=== PATIENT | male | born 1965 ===

== ENCOUNTER 2017-08-04 08:37 | Day surgery (SDC) | payer OTHER ==
[2017-08-04] MEDS ORDERED: Iohexol 350mg/ml 100 ML ONE (10:34)
[2017-08-04] MEDS ORDERED: Lidocaine 2% Inj (20ml) ONE (10:40)
[2017-08-04 11:07] VITALS: BMI 28.1
--- NOTE | 2017-08-04 11:14 | CP.SDSHP ---
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 He is referred for fisutagram. Pt. Evaluated Today:Candidate for Anesthesia & Procedure: No Short Stay Discharge - Short Stay Discharge Admitting Diagnosis/Reason for Visit: ANAL FISTULA RECURRENT
--- NOTE | 2017-08-04 11:16 | PCM.SURG1 ---
Surgeon's Initial Post Op Note - Surgeon's Notes Surgeon: Chris Ramirez MD Medical Secretary: NONE Type of Anesthesia: None Pre-Operative Diagnosis: Perianal fistula Operative Findings: The fistula was catheterized and a fistulagram showed communication with rectum. Post-Operative Diagnosis: Perianal fistula Operation Performed: Perianal fistulagram. Specimen/Specimens Removed: none Estimated Blood Loss: EBL {In ML}: 0 Blood Products Given: N/A Drains Used: No Drains Post-Op Condition: Good Date of Surgery/Procedure: 08/04/17 Time of Surgery/Procedure: 11:10
--- NOTE | 2017-08-04 12:37 | SPECPROC ---
PROCEDURE: Procedure: Fistulogram Medications: Contrast dye 15 cubic centimeters Omnipaque 320 Fluoroscopic time: 3 minutes 16 seconds Radiation: 308 mGy HISTORY: Perianal fistula status post fistula ectomy with recurrent symptoms TECHNIQUE: Following informed consent and procedure time-out, patient placed lateral position on the fluoroscopic table. Examination revealed a perianal fistula with purulent drainage. There was prepped and draped. An angled catheter was advanced into the fistulous tract. Under fluoroscopic guidance, the catheter was advanced into the rectum. Contrast injected through the catheter outlined rectum and also flowed retrograde into the sigmoid. Findings were communicated to the surgeon. IMPRESSION: Perianal fistulogram showed a patent fistulous tract to the rectum. This represents an enterocutaneous fistula.
== END 2017-08-04 11:29 | disposition home or self-care (01) ==
LOC: C.SPRAD 08:37
PROVIDERS: ATTEND Radiology Vascular & Interventional Radiology
DX: K60.3 Anal fistula (principal)
CPT/HCPCS: 49465; Q9967

== ENCOUNTER 2017-08-25 06:26 | Day surgery (SDC) | payer OTHER ==
[2017-08-25] MEDS ORDERED: Bupivacaine HCl 0.5% PF (10 ml) Inj ONE ×2 (07:48)
[2017-08-25] MEDS ORDERED: Lidocaine/Epinephrine 1% 1:100000 10 ML IJ ONE (07:48)
[2017-08-25] MEDS ORDERED: Lactated Ringer's 1,000 ML IV ONE (08:05)
[2017-08-25] MEDS ORDERED: Sodium Chloride 0.9% 1,000 ML IV ONE (08:05)
[2017-08-25] MEDS ORDERED: ceFAZolin IV 2 gm in Dextrose 2 GM/50 ML BAG IVPB ONE (08:09)
[2017-08-25] MEDS ORDERED: Succinylcholine Chloride 20 mg/ml Syr (5 ml) IV ONE (08:10)
[2017-08-25] MEDS ORDERED: Lidocaine Hydrochloride 5 ML INJ ONE (08:10)
[2017-08-25] MEDS ORDERED: Propofol 10 mg/ml Inj (20 ML) ONE (08:10)
[2017-08-25] MEDS ORDERED: Midazolam 2 MG/2 ML VIAL ONE (08:10)
[2017-08-25] MEDS ORDERED: Rocuronium 10 mg/ml (5 ml) ONE (08:10)
[2017-08-25] MEDS ORDERED: Methylene Blue 10 mg/mL(10ml) IV ONE (08:36)
[2017-08-25] MEDS ORDERED: Morphine 4 MG/ML VIAL ONE (09:13)
[2017-08-25] MEDS ORDERED: Neostigmine Methylsulfate 3mg/3ml Syringe IV ONE (09:40)
[2017-08-25] MEDS ORDERED: Oxycodone/Acetaminophen 5/325 mg Tab PO PRN (10:03)
--- NOTE | 2017-08-25 10:07 | PCM.SURG1 ---
Surgeon's Initial Post Op Note - Surgeon's Notes Surgeon: Dr. Mcfarlane Friend Of The Court: PGY4, Chaya PGY1, Dwayne CRAIG Type of Anesthesia: General Endo Anesthesia Administered By: Dr. Man Pre-Operative Diagnosis: Anal fistula Operative Findings: see operative report Post-Operative Diagnosis: Anal fistula Operation Performed: Anal fistulectomy with seton placement Specimen/Specimens Removed: skin, fistula tract Estimated Blood Loss: EBL {In ML}: 10 Blood Products Given: N/A Drains Used: No Drains Post-Op Condition: Good Date of Surgery/Procedure: 08/25/17 Time of Surgery/Procedure: 08:15
[2017-08-25 11:49] VITALS: RESP 16
--- NOTE | 2017-08-25 13:26 | OP ---
PROCEDURE DATE: 08/25/2017 PREOPERATIVE DIAGNOSIS: Recurrent anal fistula. POSTOPERATIVE DIAGNOSIS: Recurrent anal fistula. PROCEDURE DONE: 1. Examination under anesthesia. 2. Anal fistulectomy. 3. Seton placement. SURGEON: Procedure was done by wy, Dr. Serg Mcfarlane MD. GRAVITY PROSPECTING SUPERVISOR: Fahad Burch, PGY-4 resident and Amaury Larkin, PGY-1 resident. TYPE OF ANESTHESIA: General endotracheal tube anesthesia. ESTIMATED BLOOD LOSS: Around 20 mL. DRAIN: None. PATHOLOGY: 1. The pus was sent for the culture and sensitivity. 2. The fistula tract was sent for the permanent pathology. COMPLICATIONS: None. INTRAOPERATIVE FINDINGS: The patient had right lateral fistula with opening in the posterior midline on examination under anesthesia. DESCRIPTION OF PROCEDURE: On intraoperative steps, this is a 52-year-old male, who was diagnosed with recurrent anal fistula and the patient was consented for the fistulectomy and seton placement. The patient was brought to the OR, intubated in the OR, placed in the prone Jackknife position and the butt cheek was taped and the perineal area was prepped and draped in the usual sterile fashion. Examination under anesthesia was done and the fistula tract was injected with methylene blue and hydrogen peroxide and the fistula opening was detected in the posterior midline and now the fistula tract was excised and for remaining tract, the seton was placed and after placement of the seton, the seton was tied down at 3 places and the hemostasis was achieved. The wound was packed with iodoform packing and dry sterile dressing was applied. The patient tolerated the procedure well. Count of the instrument and gauze were correct. There was no apparent complication. The patient was extubated in the OR, sent to the Postanesthesia Care Unit in stable condition. Serg Mcfarlane MD
[2017-08-25 14:41] VITALS: BP 112/67; PULSE 71; TEMP 97.6; O2SAT 96
== END 2017-08-25 14:35 | disposition home or self-care (01) ==
LOC: C.SDS 06:26
PROVIDERS: ATTEND Surgery Surgical Critical Care
DX: K60.3 Anal fistula (principal)
CPT/HCPCS: 46020; 87070; 88305; J0690; J1100; J1885; J2250; J2270; J2405; J2704; J2710; J3010; J7040

== ENCOUNTER 2018-02-13 09:50 | Emergency (ER) | payer OTHER ==
[2018-02-13 09:50] VITALS: BMI 28.1
[2018-02-13 09:57] VITALS: O2SAT 99
[2018-02-13 11:02] LABS: INR 1.1; PROTHROMBIN TIME 11.9 SECONDS (9.7-12.2)
[2018-02-13 11:04] LABS: BASO % 0.6 % (0.0-2.0); EOS % 0.6 % (0.0-4.0); HEMOGLOBIN 14.4 g/dL (12.0-18.0); LYMPH # 1.5 K/uL (1.0-4.3); MEAN CELL VOLUME 87.5 fL (80.0-94.0); MEAN CORPUSCULAR HEMOGLOBIN 32.8 pg (27.0-31.0); MEAN CORPUSCULAR HGB CONC 37.5 g/dL (33.0-37.0); MEAN PLATELET VOLUME 8.2 fL (7.2-11.7); MONO # 0.5 K/uL (0.0-0.8); MONO % 7.6 % (0.0-10.0); NEUT # 4.6 K/uL (1.8-7.0); NEUT % 69.2 % (50.0-75.0); NRBC % 0.2 % (0.0-2.0); RBC 4.39 Mil/uL (4.40-5.90); RED CELL DISTRIBUTION WIDTH 14.1 % (11.5-14.5); WHITE BLOOD COUNT 6.7 K/uL (4.8-10.8)
[2018-02-13 11:07] LABS: URINE BILIRUBIN NEGATIVE (NEGATIVE); URINE BLOOD NEGATIVE (NEGATIVE); URINE CLARITY Clear (Clear); URINE COLOR Yellow (YELLOW); URINE GLUCOSE (UA) NORMAL (Normal); URINE LEUKOCYTE ESTERASE NEG Leu/uL (Negative); URINE PROTEIN NEGATIVE (NEGATIVE); URINE UROBILINOGEN NORMAL mg/dL (0.2-1.0)
[2018-02-13 11:13] LABS: CALCIUM 8.1 mg/dl (8.6-10.4); GFR AFRICAN-AMERICAN > 60; GFR NON-AFRICAN AMERICAN > 60; LIPASE 58 U/L (23-300)
[2018-02-13 11:21] LABS: ALB/GLOB RATIO 1.2 (1.0-2.1); ALBUMIN 4.1 g/dL (3.5-5.0); ALT/SGPT 29 U/L (21-72); AST/SGOT 45 U/L (17-59); BLOOD UREA NITROGEN 14 mg/dL (9-20)
--- NOTE | 2018-02-13 12:01 | C.PDOC ---
History Of Present Illness 53 y/o male presents to the ED complaining of epigastric pain radiating up into his chest for the past 2-3 days. Pain is described as a burning sensation associated with nausea and vomiting. He denies diarrhea, cough, fever, chest pain, SOB, dysuria, or other associated symptoms. Patient also reports some right lower leg swelling and pain, with a non-healing wound for the last month. Time Seen by Provider: 02/13/18 10:02 Chief Complaint (Nursing): GI Problem History Per: Patient History/Exam Limitations: no limitations Onset/Duration Of Symptoms: Days Current Symptoms Are (Timing): Still Present Location Of Pain/Discomfort: Epigastric Quality Of Discomfort: Burning Past Medical History Reviewed: Historical Data, Nursing Documentation, Vital Signs Vital Signs: Last Vital Signs Temp 98 F 02/13/18 13:20 Pulse 69 02/13/18 13:20 Resp 17 02/13/18 13:20 BP 137/71 02/13/18 13:20 Pulse Ox 99 02/13/18 14:13 - Medical History PMH: No Chronic Diseases Other Surgeries: Anal fistula repair Family History: States: No Known Family Hx - Social History Hx Tobacco Use: No Hx Alcohol Use: Yes Hx Substance Use: No - Immunization History Hx Tetanus Toxoid Vaccination: Yes (2014) Hx Influenza Vaccination: No Hx Pneumococcal Vaccination: No Review Of Systems Constitutional: Negative for: Fever Cardiovascular: Negative for: Chest Pain, Palpitations Respiratory: Negative for: Cough, Shortness of Breath Gastrointestinal: Positive for: Nausea, Vomiting, Abdominal Pain. Negative for : Diarrhea Musculoskeletal: Positive for: Leg Pain (swelling) Skin: Positive for: Lesions (open wound to right lower leg) Neurological: Negative for: Weakness, Numbness Physical Exam - Physical Exam Appears: Well, Non-toxic, No Acute Distress, Other ( comfortable, speaking in full sentences) Skin: Warm, Dry, No Rash, Other (see extremity exam ) Head: Normacephalic Eye(s): bilateral: Normal Inspection Oral Mucosa: Moist Neck: Supple Cardiovascular: Rhythm Regular Respiratory: Normal Breath Sounds, No Rales, No Rhonchi, No Wheezing Gastrointestinal/Abdominal: Bowel Sounds, Soft, Tenderness (mild epigastric tenderness, (-) Rome's, (-) McBurney's), No Guarding, No Rebound Back: No CVA Tenderness Extremity: Normal ROM, Tenderness (near ulcer site on right lower extremity), Capillary Refill (< 2 sec all digits ), Swelling (+1 pitting edema in the right lower extremity), Other (approx 2 cm ulcer at distal morales of right lower extremity with mild surrounding erythema and chronic skin changes) Pulses: Left Dorsalis Pedis: Normal, Right Dorsalis Pedis: Normal Neurological/Psych: Oriented x3, Normal Motor, Normal Sensation Gait: Steady ED Course And Treatment - Laboratory Results Result Diagrams: 02/13/18 10:43 02/13/18 10:43 O2 Sat by Pulse Oximetry: 99 (RA) Pulse Ox Interpretation: Normal - Radiology CXR: Interpreted by Me, Viewed By Me CXR Interpretation: Yes: No Acute Disease. No: Infiltrates - CT Scan/US Venous Doppler RLE Other Rad Studies (CT/US): Read By Radiologist, Radiology Report Reviewed CT/US Interpretation: Negative for DVT Progress Note: Blood work, UA, CXR, Venous doppler ordered and reviewed. Patient given IV NS bolus, IV pepcid and IV zofran. Reevaluation Time: 13:00 Reassessment Condition: Improved (On reassessment, patient is resting comfortably and states he feels better, abdominal pain has resolved. On exam, abdomen is soft and nontender. Venous doppler neg for acute DVT. Patient given Rxs for Protonix and Clindamycin, and he was instructed to follow up with GI within 1 week. He understands he should return to ED if symptoms worsen.) Disposition Counseled Patient/Family Regarding: Studies Performed, Diagnosis, Need For Followup, Rx Given - Disposition Referrals: [facility] [Outside] Drew Webber MD [Medical Doctor] - Disposition: HOME/ ROUTINE Disposition Time: 13:00 Condition: STABLE Additional Instructions: FOLLOW UP WITH CUT OFF MAN WITHIN 1 WEEK USE MEDICATIONS DIRECTED RETURN TO EMERGENCY ROOM IF WOUND WORSENS OR SYMPTOMS RETURN SEGUIMIENTO CON GASTROENTERLOGO DENTRO DE 1 SEMANA USE MEDICAMENTOS SEGN LO INDICADO REGRESAR AL AUSTEN DE EMERGENCIA SI LA HERIDA EMPIEZA O SNTOMAS DEVOLVER Prescriptions: Clindamycin [Cleocin] 300 mg PO TID #21 cap Pantoprazole [Protonix EC Tab] 20 mg PO DAILY #30 ect Instructions: Cellulitis (Skin Infection), Adult (DC) Forms: [employer] (Tanzanian) Print Language: BOLIVIAN - Clinical Impression Clinical Impression: Leg wound, right, Epigastric abdominal pain, Cellulitis - Scribe Statement The provider has reviewed the documentation as recorded by the Agueda Orta Provider Attestation: All medical record entries made by the Agueda were at my direction and personally dictated by me. I have reviewed the chart and agree that the record accurately reflects my personal performance of the history, physical exam, medical decision making, and the department course for this patient. I have also personally directed, reviewed, and agree with the discharge instructions and disposition.
[2018-02-13 13:21] VITALS: BP 137/71; PULSE 69; RESP 17; TEMP 98
--- NOTE | 2018-02-13 13:24 | VASCLAB ---
Date of service: 02/13/2018 PROCEDURE: Right Lower Extremity Venous Duplex Exam. HISTORY: RIGHT LEG SWELLING , WOUND R/O DVT PRIORS: None. TECHNIQUE: Right common femoral, femoral, popliteal and posterior tibial, peroneal and great saphenous veins were evaluated. Flow was assessed with color Doppler, compressibility, assessment of phasic flow and augmentation response. Report prepared by Ciara Galvan, LOPEZ, RVS FINDINGS: RIGHT: 1. Common Femoral Vein: 1.1. Compressibility - Fully compressible: Thrombus - None: Flow - Phasic: Augmentation -Normal: Reflux - None. 2. Femoral Vein: 2.1. Compressibility - Fully compressible: Thrombus - None: Flow - Phasic: Augmentation -Normal: Reflux - None. 3. Popliteal Vein: 3.1. Compressibility - Fully compressible: Thrombus - None: Flow - Phasic: Augmentation -Normal: Reflux - None. 4. Posterior Tibial Vein: 4.1. Compressibility - Fully compressible: Thrombus - None: Flow - Phasic: Augmentation -Normal: Reflux - None. 5. Peroneal Vein: 5.1. Compressibility - Fully compressible: Thrombus - None: Flow - Phasic: Augmentation -Normal: Reflux - None. 6. Great Saphenous Vein: 6.1. Compressibility - Fully compressible: Thrombus -None: Flow - Phasic: Augmentation - Normal: Reflux - None. OTHER FINDINGS: IMPRESSION: No evidence of deep or superficial vein thrombosis of the right lower extremity with excellent venous flow. Normal valve function noted of the right side. Normal venous flow noted in the left common femoral vein.
--- NOTE | 2018-02-13 13:48 | RAD ---
Date of service: 02/13/2018 PROCEDURE: CHEST RADIOGRAPH, 1 VIEW HISTORY: EPIGASTRIC CARRENO COMPARISON: 07/15/2017 FINDINGS: LUNGS: Clear. PLEURA: No pneumothorax or pleural fluid seen. CARDIOVASCULAR: Normal. OSSEOUS STRUCTURES: No significant abnormalities. VISUALIZED UPPER ABDOMEN: Normal. OTHER FINDINGS: None. IMPRESSION: No active disease.
== END 2018-02-13 13:20 | disposition home or self-care (01) ==
LOC: C.ER 09:50
DX: R10.13 Epigastric pain (principal); S81.801A Unspecified open wound, right lower leg, initial encounter; X58.XXXA Exposure to other specified factors, initial encounter
CPT/HCPCS: 71045; 80053; 81001; 83690; 85025; 85610; 85730; 93971; 96374; 96375; 99285; J2405

== ENCOUNTER 2018-02-25 14:55 | Inpatient (IN) | payer OTHER ==
[2018-02-25 14:55] VITALS: BMI 28.1
--- NOTE | 2018-02-25 15:37 | C.PDOC ---
History Of Present Illness 53 year old male patient presents to the ER c/o worsening right lower leg wound. Patient reports the wound is painful and has gotten larger since his last ER visit. Patient is s/p regimen of PO Clindamycin given on 02/13 in the ER. He reports he has had this wound for 1.5 months already. Patient denies fever, trauma/injuries, SOB, chest pain, or discharge from the wound. Time Seen by Provider: 02/25/18 15:17 Chief Complaint (Nursing): Abnormal Skin Integrity History Per: Patient History/Exam Limitations: no limitations Onset/Duration Of Symptoms: Persistent Current Symptoms Are (Timing): Worse Location Of Injury: Right: Leg Quality Of Symptoms: Painful, Swollen. denies: Draining Past Medical History Reviewed: Historical Data, Nursing Documentation, Vital Signs Vital Signs: Last Vital Signs Temp 97.6 F 03/01/18 07:59 Pulse 72 03/01/18 07:59 Resp 20 03/01/18 07:59 BP 116/65 03/01/18 07:59 Pulse Ox 97 03/01/18 07:59 - Medical History PMH: No Chronic Diseases Family History: States: No Known Family Hx - Social History Hx Tobacco Use: No Hx Alcohol Use: No Hx Substance Use: No - Immunization History Hx Tetanus Toxoid Vaccination: No Hx Influenza Vaccination: No Hx Pneumococcal Vaccination: No Review Of Systems Constitutional: Negative for: Fever, Other (recent trauma) Cardiovascular: Negative for: Chest Pain, Palpitations Respiratory: Negative for: Shortness of Breath Gastrointestinal: Negative for: Abdominal Pain Skin: Negative for: Other (discharge from wound) Neurological: Negative for: Weakness, Numbness Physical Exam - Physical Exam Appears: Well, Non-toxic, In Acute Distress (in moderate pain) Skin: Warm, Dry, Other (see extremity exam) Head: Normacephalic Eye(s): bilateral: Normal Inspection Oral Mucosa: Moist Neck: Supple Cardiovascular: Rhythm Regular Respiratory: Normal Breath Sounds, No Rales, No Rhonchi, No Wheezing Gastrointestinal/Abdominal: Normal Exam, Bowel Sounds, Soft, No Tenderness Back: No CVA Tenderness Extremity: Tenderness (right lower leg diffuse tenderness), No Pedal Edema, Capillary Refill (<2 sec all digits ), Other (right leg tender to palpation and erythematous, approx 4-5 cm ulcerated wound, no purulent discharge, mild surrounding erythema) Extremity: Bilateral: Normal ROM Pulses: Left Dorsalis Pedis: Normal, Right Dorsalis Pedis: Normal Neurological/Psych: Oriented x3, Normal Motor, Normal Sensation Gait: Steady ED Course And Treatment - Laboratory Results Result Diagrams: 03/01/18 08:01 03/01/18 08:01 O2 Sat by Pulse Oximetry: 98 (RA) Pulse Ox Interpretation: Normal - Other Rad right tib/fib X-Ray: Interpreted by Me, Viewed By Me (no gas, no obvious periosteal elevation) Progress Note: Blood work, arterial doppler, wound culture, Xray ordered. Venous doppler done during prior ED visit neg for acute DVT. Patient given 1 dose IV Vancomycin and IV Cefepime in ED. IV Morphine given for pain. - Physician Consult Information Physician Contacted: Diana Barillas Outcome Of Conversation: Discussed patient with hospitalist, agrees with admission for right leg worsening wound/cellulitis, failed outpatient treatment. Disposition - Disposition Disposition: HOSPITALIZED Disposition Time: 18:18 Condition: STABLE - Clinical Impression Clinical Impression: Failure of outpatient treatment, Cellulitis, Leg wound, right - Scribe Statement The provider has reviewed the documentation as recorded by the Agueda Newsome Do Provider Attestation: All medical record entries made by the Scribe were at my direction and personally dictated by me. I have reviewed the chart and agree that the record accurately reflects my personal performance of the history, physical exam, medical decision making, and the department course for this patient. I have also personally directed, reviewed, and agree with the discharge instructions and disposition. Decision To Admit - Pt Status Changed To: Hospital Disposition Of: Inpatient - Admit Certification Admit to Inpatient:: After my assessment, the patient will require hospitalization for at least two midnights. This is because of the severity of symptoms shown, intensity of services needed, and/or the medical risk in this patient being treated as an outpatient. - InPatient: Physician Admission Certification: I certify that this patient requires 2 or more midnights of care for the following reason:: see notes - . Bed Request Type: Regular Admitting Physician: Diana Barillas Patient Diagnosis: Failure of outpatient treatment, Leg wound, right, Cellulitis
[2018-02-25] MEDS ORDERED: Sodium Chloride 0.9% 1,000 ML IV ONE (15:39)
[2018-02-25] MEDS ORDERED: Sodium Chloride 0.9% 1,000 ML ONE (15:54)
[2018-02-25] MEDS ORDERED: Morphine 4 MG/ML VIAL ONE (16:05)
[2018-02-25 16:13] LABS: EOS # 0.1 K/uL (0.0-0.7); MEAN CELL VOLUME 87.8 fL (80.0-94.0); MONO # 0.6 K/uL (0.0-0.8)
[2018-02-25 16:17] LABS: VENOUS BLOOD GAS BASE EXCESS 1.5 mmol/L (0.0-2.0); VENOUS BLOOD GAS PCO2 46 mmHg (40-60); VENOUS BLOOD GAS PO2 28 mm/Hg (30-55); VENOUS BLOOD PH 7.38 (7.32-7.43)
[2018-02-25] MEDS ORDERED: Vancomycin 1 GM 1 GM/250 ML BAG IV STA (16:18)
[2018-02-25] MEDS ORDERED: Cefepime IV 1 gm in Dextrose 1 GM/50 ML BAG IVPB STA (16:18)
[2018-02-25 16:20] LABS: INR 1.2; PROTHROMBIN TIME 12.7 SECONDS (9.7-12.2)
[2018-02-25 16:23] LABS: BASO % 0.5 % (0.0-2.0); HEMOGLOBIN 12.1 g/dL (12.0-18.0); LYMPH % 16.4 % (20.0-40.0); MEAN CORPUSCULAR HEMOGLOBIN 30.4 pg (27.0-31.0); MEAN CORPUSCULAR HGB CONC 34.6 g/dL (33.0-37.0); MEAN PLATELET VOLUME 7.9 fL (7.2-11.7); MONO % 9.4 % (0.0-10.0); NEUT # 4.5 K/uL (1.8-7.0); NEUT % 72.7 % (50.0-75.0); NRBC % 0.1 % (0.0-2.0); RBC 3.97 Mil/uL (4.40-5.90); RED CELL DISTRIBUTION WIDTH 14.6 % (11.5-14.5); WHITE BLOOD COUNT 6.2 K/uL (4.8-10.8)
[2018-02-25 17:00] LABS: BLOOD UREA NITROGEN 17 mg/dL (9-20); GFR AFRICAN-AMERICAN > 60; GFR NON-AFRICAN AMERICAN > 60
[2018-02-25] MEDS ORDERED: Vancomycin 1 gm/NS 200 ml 1 GM/200 ML BAG IVPB ONE (17:00)
[2018-02-25 17:01] LABS: ALB/GLOB RATIO 1.3 (1.0-2.1); ALT/SGPT 24 U/L (21-72); AST/SGOT 22 U/L (17-59); CALCIUM 8.9 mg/dl (8.6-10.4)
--- NOTE | 2018-02-25 17:48 | RAD ---
Date of service: 02/25/2018 PROCEDURE: Radiographs of the right tibia and fibula. HISTORY: DISTAL TIB/FIB WOUND, R/O OSTEO/GAS COMPARISON: None available. TECHNIQUE: Frontal and lateral views obtained. FINDINGS: BONES: Bone alignment is normal. There is no acute fracture or bone destruction. JOINT SPACES: Unremarkable. OTHER FINDINGS: There is diffuse subcutaneous edema. No soft tissue gas. IMPRESSION: No radiographic evidence for acute osteomyelitis. No soft tissue gas. Subcutaneous edema.
[2018-02-25 19:25] VITALS: RESP 20
--- NOTE | 2018-02-25 20:22 | CP.PCM.HP ---
<Francisco Javier Macario E - Last Filed: 02/25/18 20:24> History of Present Illness - History of Present Illness History of Present Illness: [employer] (Chris Bruce, [id number]) HPI: Patient is a 53 year male with history of anal fistula who presents to the ED with complaint of right leg wound that started from a small abrasion for a packaging box 20 days ago. Patient was seen in the ED on 02/13/18 for abdominal pain, however, his right leg wound was addressed as well. Venous doppler was negative for DVT on 02/13 and patient was discharge home with script for clindamycin 300mg PO TID for 7 days, which he filled and completed the 7 days course. Patient came back to the ED today because he noticed increased wound size, weeping and odour. Patient admits to 03/06 non-radiating pulsatile and burning pain that his mildly exacerbated with walking. Patient denies any symptoms fever, chills, nausea, vomiting, chest pain, palpitations, SOB, recent travels and sick contact but admits to right leg swelling. 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 Denies current or former use of tobacco and illicit drugs. Admits to an alcoholic beverage once per month. Present on Admission - Present on Admission Any Indicators Present on Admission: No Review of Systems - Constitutional Constitutional: absent: Chills, Fever, Headache, Weakness - EENT Eyes: absent: Blurred Vision, Change in Vision Ears: absent: Dizziness - Cardiovascular Cardiovascular: absent: Chest Pain, Diaphoresis, Dyspnea, Lightheadedness, Orthopnea, Palpitations - Respiratory Respiratory: absent: Cough, Dyspnea, Wheezing - Gastrointestinal Gastrointestinal: Hematochezia. absent: Abdominal Pain, Nausea, Vomiting Additional comments: Mild Intermittent chronic hematochezia from anal fistula - Genitourinary Genitourinary: absent: Dysuria, Hematuria, Urinary Frequency, Urinary Urgency - Musculoskeletal Musculoskeletal: absent: Limited Range of Motion, Muscle Weakness, Numbness, Tingling Additional comments: Right leg burning sensation - Neurological Neurological: absent: Burning Sensations, Dizziness, Numbness, Headaches, Paresthesias, Sensory Deficit, Tingling, Weakness - Endocrine Endocrine: absent: Fatigue, Palpitations Past Patient History - Infectious Disease Hx of Infectious Diseases: None - Past Medical History & Family History Past Medical History?: No - Past Social History Smoking Status: Never Smoked - CARDIAC Hx Cardiac Disorders: No - PULMONARY Hx Respiratory Disorders: No - NEUROLOGICAL Hx Neurological Disorder: No - HEENT Hx HEENT Problems: No - RENAL Hx Chronic Kidney Disease: No - ENDOCRINE/METABOLIC Hx Endocrine Disorders: No - HEMATOLOGICAL/ONCOLOGICAL Hx Blood Disorders: No - INTEGUMENTARY Hx Dermatological Problems: No - MUSCULOSKELETAL/RHEUMATOLOGICAL Hx Musculoskeletal Disorders: No - GASTROINTESTINAL Hx Gastrointestinal Disorders: Yes Other/Comment: anal fistula - GENITOURINARY/GYNECOLOGICAL Hx Genitourinary Disorders: No - PSYCHIATRIC Hx Substance Use: No - SURGICAL HISTORY Hx Surgeries: Yes Other/Comment: anal fistula repair. - ANESTHESIA Hx Anesthesia: Yes Hx Anesthesia Reactions: No Hx Malignant Hyperthermia: No Meds Allergies/Adverse Reactions: Allergies Allergy/AdvReac Type Severity Reaction Status Date / Time No Known Allergies Allergy Verified 12/27/15 11:39 Physical Exam - Constitutional Appears: No Acute Distress - Head Exam Head Exam: ATRAUMATIC, NORMAL INSPECTION - Eye Exam Eye Exam: EOMI, Normal appearance - ENT Exam ENT Exam: Mucous Membranes Moist - Respiratory Exam Respiratory Exam: Clear to Auscultation Bilateral, NORMAL BREATHING PATTERN. absent: Decreased Breath Sounds, Prolonged Expiratory Phase, Rhonchi, Wheezes, Respiratory Distress - Cardiovascular Exam Cardiovascular Exam: REGULAR RHYTHM, +S1, +S2. absent: Diastolic murmur, Systolic Murmur - GI/Abdominal Exam GI & Abdominal Exam: Normal Bowel Sounds, Soft. absent: Diminished Bowel Sounds , Distended, Firm, Guarding, Tenderness - Extremities Exam Extremities exam: Positive for: pedal pulses present. Negative for: pedal edema Additional comments: Right leg swelling with mild erythema Right leg Wound above the ankle: 3-4cm open wound, weeping - Back Exam Back exam: NORMAL INSPECTION. absent: CVA tenderness (L), CVA tenderness (R) - Neurological Exam Neurological exam: Alert, Normal Gait, Oriented x3 - Psychiatric Exam Psychiatric exam: Normal Affect - Skin Skin Exam: Normal Color Results - Vital Signs Recent Vital Signs: Last Vital Signs Temp 97.5 F L 02/25/18 19:15 Pulse 72 02/25/18 19:15 Resp 20 02/25/18 19:15 BP 129/80 02/25/18 19:15 Pulse Ox 98 02/25/18 19:15 - Labs Result Diagrams: 02/25/18 16:09 02/25/18 16:09 Labs: Laboratory Results - last 24 hr 02/25/18 02/25/18 02/25/18 16:09 16:09 16:09 WBC 6.2 RBC 3.97 L Hgb 12.1 D Hct 34.9 L MCV 87.8 MCH 30.4 MCHC 34.6 RDW 14.6 H Plt Count 266 MPV 7.9 Neut % (Auto) 72.7 Lymph % (Auto) 16.4 L [place] % (Auto) 9.4 Eos % (Auto) 1.0 Baso % (Auto) 0.5 Neut # (Auto) 4.5 Lymph # (Auto) 1.0 [place] # (Auto) 0.6 Eos # (Auto) 0.1 Baso # (Auto) 0.0 ESR 37 H PT 12.7 H INR 1.2 APTT 38 H pO2 VBG pH VBG pCO2 VBG HCO3 VBG Total CO2 VBG O2 Sat (Calc) VBG Base Excess VBG Potassium Glucose Lactate Sodium 144 Potassium 3.7 Chloride 105 Carbon Dioxide 29 Anion Gap 14 BUN 17 Creatinine 1.0 Est GFR ( Amer) > 60 Est GFR (Non-Af Amer) > 60 Random Glucose 85 Calcium 8.9 Total Bilirubin 0.6 AST 22 ALT 24 Alkaline Phosphatase 67 Total Protein 7.2 Albumin 4.0 Globulin 3.2 Albumin/Globulin Ratio 1.3 Venous Blood Potassium 02/25/18 16:10 WBC RBC Hgb Hct MCV MCH MCHC RDW Plt Count MPV Neut % (Auto) Lymph % (Auto) [place] % (Auto) Eos % (Auto) Baso % (Auto) Neut # (Auto) Lymph # (Auto) [place] # (Auto) Eos # (Auto) Baso # (Auto) ESR PT INR APTT pO2 28 L VBG pH 7.38 VBG pCO2 46 VBG HCO3 24.8 VBG Total CO2 28.6 H VBG O2 Sat (Calc) 63.6 VBG Base Excess 1.5 VBG Potassium 3.5 L Glucose 95 Lactate 1.1 Sodium 141.0 Potassium Chloride 108.0 H Carbon Dioxide Anion Gap BUN Creatinine Est GFR ( Amer) Est GFR (Non-Af Amer) Random Glucose Calcium Total Bilirubin AST ALT Alkaline Phosphatase Total Protein Albumin Globulin Albumin/Globulin Ratio Venous Blood Potassium 3.5 L Assessment & Plan (1) Cellulitis of right leg Assessment and Plan: Imaging/ Labs: 02/13 ( Venous Doppler): No evidence of deep or superficial vein thrombosis of the right lower extremity with venous flow. Normal valve function noted of right side 02/25/18 (Right tibia and fibula): No radiographic evidence for acute osteomyelitis. No soft tissue gas. Subcutaneous edema. F/u right leg ultrasound F/u wound culture and blood culture Medications/management: * Vancomycin 1gm Q12H * Florastor 250mg PO BID * Encourage right leg elevation * Zosyn not added for pseudomonas coverage as patient is not diabetic ([id number]/ 23/18: 5.0) Status: Acute (2) Prophylactic measure Assessment and Plan: GI: Not Indicated DT: Patient ambulates, Left leg SCD, Right leg SCD contraindicated due to the right leg cellulitis All plans and management discussed with Dr. Dickinson Status: Acute <Emilio Dickinson - Last Filed: 02/26/18 05:59> Results - Vital Signs Recent Vital Signs: Last Vital Signs Temp 98.6 F 02/26/18 00:00 Pulse 64 02/26/18 00:00 Resp 20 02/26/18 00:00 BP 120/68 02/26/18 00:00 Pulse Ox 97 02/26/18 00:00 - Labs Result Diagrams: 02/25/18 16:09 02/25/18 16:09 Labs: Laboratory Results - last 24 hr 02/25/18 02/25/18 02/25/18 16:09 16:09 16:09 WBC 6.2 RBC 3.97 L Hgb 12.1 D Hct 34.9 L MCV 87.8 MCH 30.4 MCHC 34.6 RDW 14.6 H Plt Count 266 MPV 7.9 Neut % (Auto) 72.7 Lymph % (Auto) 16.4 L [place] % (Auto) 9.4 Eos % (Auto) 1.0 Baso % (Auto) 0.5 Neut # (Auto) 4.5 Lymph # (Auto) 1.0 [place] # (Auto) 0.6 Eos # (Auto) 0.1 Baso # (Auto) 0.0 ESR 37 H PT 12.7 H INR 1.2 APTT 38 H pO2 VBG pH VBG pCO2 VBG HCO3 VBG Total CO2 VBG O2 Sat (Calc) VBG Base Excess VBG Potassium Glucose Lactate Sodium 144 Potassium 3.7 Chloride 105 Carbon Dioxide 29 Anion Gap 14 BUN 17 Creatinine 1.0 Est GFR ( Amer) > 60 Est GFR (Non-Af Amer) > 60 Random Glucose 85 Calcium 8.9 Total Bilirubin 0.6 AST 22 ALT 24 Alkaline Phosphatase 67 Total Protein 7.2 Albumin 4.0 Globulin 3.2 Albumin/Globulin Ratio 1.3 Venous Blood Potassium 02/25/18 16:10 WBC RBC Hgb Hct MCV MCH MCHC RDW Plt Count MPV Neut % (Auto) Lymph % (Auto) [place] % (Auto) Eos % (Auto) Baso % (Auto) Neut # (Auto) Lymph # (Auto) [place] # (Auto) Eos # (Auto) Baso # (Auto) ESR PT INR APTT pO2 28 L VBG pH 7.38 VBG pCO2 46 VBG HCO3 24.8 VBG Total CO2 28.6 H VBG O2 Sat (Calc) 63.6 VBG Base Excess 1.5 VBG Potassium 3.5 L Glucose 95 Lactate 1.1 Sodium 141.0 Potassium Chloride 108.0 H Carbon Dioxide Anion Gap BUN Creatinine Est GFR ( Amer) Est GFR (Non-Af Amer) Random Glucose Calcium Total Bilirubin AST ALT Alkaline Phosphatase Total Protein Albumin Globulin Albumin/Globulin Ratio Venous Blood Potassium 3.5 L Assessment & Plan - Date & Time Date: 02/26/18 (I have seen and examined the patient. I agree with the findings and plan of care as documented by Dr. Macario. Patient with cellulitis of right leg. Failed outpatient therapy. Vanco for now. Monitor for acute changes.) Time: 05:58 Attending/Attestation - Attestation I have personally seen and examined this patient.: Yes I have fully participated in the care of the patient.: Yes I have reviewed all pertinent clinical information: Yes
[2018-02-26] MEDS ORDERED: Vancomycin 1 gm/NS 200 ml 1 GM/200 ML BAG IVPB SCH ×2 (06:30→10:00)
[2018-02-26 07:45] LABS: BASO # 0.1 K/uL (0.0-0.2); EOS # 0.1 K/uL (0.0-0.7); EOS % 1.6 % (0.0-4.0); LYMPH # 1.1 K/uL (1.0-4.3); LYMPH % 21.1 % (20.0-40.0); MEAN CELL VOLUME 88.6 fL (80.0-94.0); MEAN CORPUSCULAR HEMOGLOBIN 31.1 pg (27.0-31.0); MEAN CORPUSCULAR HGB CONC 35.1 g/dL (33.0-37.0); MONO # 0.5 K/uL (0.0-0.8); MONO % 9.4 % (0.0-10.0); NEUT # 3.6 K/uL (1.8-7.0); NEUT % 66.9 % (50.0-75.0); RBC 3.85 Mil/uL (4.40-5.90); RED CELL DISTRIBUTION WIDTH 14.1 % (11.5-14.5); WHITE BLOOD COUNT 5.3 K/uL (4.8-10.8)
[2018-02-26 08:15] LABS: ALB/GLOB RATIO 1.3 (1.0-2.1); ALBUMIN 3.6 g/dL (3.5-5.0); ALT/SGPT 24 U/L (21-72); AST/SGOT 18 U/L (17-59); BLOOD UREA NITROGEN 13 mg/dL (9-20); CALCIUM 8.9 mg/dl (8.6-10.4); GFR AFRICAN-AMERICAN > 60; GFR NON-AFRICAN AMERICAN > 60
[2018-02-26] MEDS: Saccharomyces Boulardi 250 mg Cap PO SCH ×2 (10:10→17:37)
[2018-02-26] MEDS: Enoxaparin 40 mg Syringe SC SCH (10:10)
--- NOTE | 2018-02-26 11:45 | CP.PCM.PN ---
<Diana Barillas V - Last Filed: 02/26/18 16:37> Objective - Vital Signs/Intake and Output Vital Signs (last 24 hours): Temp Pulse Resp BP Pulse Ox 98.1 F 60 20 119/75 95 02/26/18 07:00 02/26/18 07:00 02/26/18 07:00 02/26/18 07:00 02/26/18 07:00 Intake and Output: 02/26/18 02/26/18 06:59 18:59 Intake Total 400 Balance 400 - Medications Medications: Current Medications Acetaminophen (Tylenol 325mg Tab) 650 mg PO Q6 PRN PRN Reason: Pain, moderate (4-7) Enoxaparin Sodium (Lovenox) 40 mg SC DAILY [facility] Last Admin: 02/26/18 10:10 Dose: 40 mg Piperacillin Sod/Tazobactam (Sod 3.375 gm/ Sodium Chloride) 100 mls @ 200 mls/ hr IVPB Q8H [facility] PRN Reason: Protocol Last Admin: 02/26/18 13:00 Dose: 200 mls/hr Sodium Chloride (Sodium Chloride 0.9%) 1,000 mls @ 100 mls/hr IV .Q10H [facility] Saccharomyces Boulardii (Florastor) 250 mg PO BID [facility] Last Admin: 02/26/18 10:10 Dose: 250 mg - Labs Labs: 02/26/18 07:34 02/26/18 07:34 PT 12.7 SECONDS (9.7-12.2) H 02/25/18 16:09 INR 1.2 02/25/18 16:09 APTT 38 SECONDS (21-34) H 02/25/18 16:09 Attending/Attestation - Attestation I have personally seen and examined this patient.: Yes I have fully participated in the care of the patient.: Yes I have reviewed all pertinent clinical information, including history, physical exam and plan: Yes Notes (Text): Patient seen, examined and case discussed with medical center manager. Patient seen this morning while working with physical therapy. Patient does have swelling, rubor, and appears to be superifical wound with granulation tissue noted over the left anterior morales. Patient's vancomycin trough elevated above 20. I have stopped vancomycin. We will repeat random vancomycin level tomorrow and I have started IV fluids. I have asked podiatry resident to come to evaluate the area; however if the area is too high up we may need to ask for general surgery to eval. Patient's venous dopplers are negative for DVT. Patient noted for subcutaneous edema over the xray. Wound culture thus far shows gram negative capo. We are awaiting final culture. Blood cultures are negative for no growth for 24 hours X2. Patient is afebrile and without elevated white count. I did delineate area of rubor to see if IV antibiotic will help to improve. (1) Cellulitis of right leg Right lower extremity Leg wound Possible peripheral artery disease Assessment and Plan: * Refractory to PO Clindamycin * Imaging/ Labs: 02/13 ( Venous Doppler): No evidence of deep or superficial vein thrombosis of the right lower extremity with venous flow. Normal valve function noted of right side * 02/25/18 (Right tibia and fibula): No radiographic evidence for acute osteomyelitis. No soft tissue gas. Subcutaneous edema. * 02/26/18: (arterial doppler): NOE non diagnostic due to possibler arterial wall calcifications Medications/management: * Stopped Vancomycin 1gm Q12H secondary to elevated vancomycin level * Will start IV fluids * repeat vancomycin level tomorrow * Start zosyn 3.375 IV Q8H (active since 02/26/18) * Florastor 250mg PO BID * Encourage right leg elevation Status: Acute (2) Prophylactic measure Assessment and Plan: * GI ppx: Not Indicated * DVT ppx: Patient ambulates, Left leg SCD, Right leg SCD contraindicated due to the right leg cellulitis <Isabel Osborne - Last Filed: 02/26/18 18:04> Subjective - Date & Time of Evaluation Date of Evaluation: 02/26/18 Time of Evaluation: 11:40 - Subjective Subjective: PGY-1 Medicine Progress Note Patient seen and examined at bedside. Patient reports improvement in pain in right lower extremity from yesterday but states the pain only decreased from 9/ 10 to 7/10. Patient ambulating with assistance from nursing at time of examination. Patient denies fevers or chills. Patient denies chest pain, sob, n/ v, urinary complaints, and headache. Objective - Vital Signs/Intake and Output Vital Signs (last 24 hours): Temp Pulse Resp BP Pulse Ox 98.1 F 60 20 119/75 95 02/26/18 07:00 02/26/18 07:00 02/26/18 07:00 02/26/18 07:00 02/26/18 07:00 Intake and Output: 02/26/18 02/26/18 06:59 18:59 Intake Total 400 Balance 400 - Medications Medications: Current Medications Acetaminophen (Tylenol 325mg Tab) 650 mg PO Q6 PRN PRN Reason: Pain, moderate (4-7) Enoxaparin Sodium (Lovenox) 40 mg SC DAILY [facility] Last Admin: 02/26/18 10:10 Dose: 40 mg Vancomycin/Sodium Chloride (Vancomycin 1 Gm/Ns 200 Ml) 1 gm in 200 mls @ 133 mls/hr IVPB Q12H [facility] PRN Reason: Protocol Stop: 03/03/18 06:31 Last Admin: 02/26/18 05:34 Dose: 133 mls/hr Piperacillin Sod/Tazobactam (Sod 3.375 gm/ Sodium Chloride) 100 mls @ 200 mls/ hr IVPB Q8H [facility] PRN Reason: Protocol Saccharomyces Boulardii (Florastor) 250 mg PO BID [facility] Last Admin: 02/26/18 10:10 Dose: 250 mg - Labs Labs: 02/26/18 07:34 02/26/18 07:34 PT 12.7 SECONDS (9.7-12.2) H 02/25/18 16:09 INR 1.2 02/25/18 16:09 APTT 38 SECONDS (21-34) H 02/25/18 16:09 - Constitutional Appears: Non-toxic, No Acute Distress - Head Exam Head Exam: NORMAL INSPECTION, NORMOCEPHALIC - Eye Exam Eye Exam: EOMI, Normal appearance - ENT Exam ENT Exam: Mucous Membranes Moist, Normal Exam - Respiratory Exam Respiratory Exam: Clear to Ausculation Bilateral, NORMAL BREATHING PATTERN. absent: Wheezes - Cardiovascular Exam Cardiovascular Exam: REGULAR RHYTHM, +S1, +S2. absent: Murmur - GI/Abdominal Exam GI & Abdominal Exam: Soft, Normal Bowel Sounds. absent: Distended, Firm, Tenderness - Extremities Exam Extremities Exam: Normal Inspection, Pedal Edema, Tenderness Additional comments: pedal pulses in right lower extremity present no oozing, drainage, pus noted clear demarcations below knee to above ankle with blue-black discoloration tenderness to palpation of lower extremity ranging from above the right ankle to the below knee - Neurological Exam Neurological Exam: Alert, Awake, Oriented x3 - Skin Skin Exam: Normal Color Additional comments: open wound on right lower extremity with no pus or blood drainage right leg swelling below the knee Assessment and Plan - Assessment and Plan (Free Text) Assessment: Patient is a 53 y.o male with PMH of anal fistula presents with complain of right leg wound; came to ED on 02/13 for leg wound and abdomen pain; discharged with outpatient antibiotics, clindamycin; failed outpatient therapy with wound increasing in size, weeping, and malodorous; currently being treated for cellulitis; prelim read of wound cx positive for gram negative capo Plan: Cellulitis 02/13/18 Lower extremity u/s: negative for DVT 02/25/18 Tibia/Fibula Xray: negative for osteo; subcutaneous edema present 02/25/18 Lower extremity u/s: pending Vancomycin stopped; Vanc trough:31.1; Repeat trough in AM Zosyn 3.375g q8 IVPB Podiatry Consulted- Dr. Smith- Recommendations appreciated Prelim gram stain- positive for gram negative rods- pending full read Prophylaxis GI prophylaxis: Not indicated at this time Lovenox 40mg SC daily Florastor 250mg po bid
[2018-02-26] MEDS: Piperacillin/Tazobact 3.375 GM in Sodium Chloride 100 ML IVPB SCH ×2 (13:00→19:43)
--- NOTE | 2018-02-26 13:27 | VASCLAB ---
Date of service: 02/25/2018 STUDY DESCRIPTION: HISTORY: RLE R/O ARTERIAL OCCLUSION PRIORS: None. TECHNIQUE: Pulse volume recording waveforms and segmental pressures of bilateral lower extremities at multiple levels were obtained. Ankle Brachial Indices (ABIs) were calculated. Report prepared by Melchor Enriquez, BS, RVT RIGHT LOWER EXTREMITY: * Brachial artery: Pressure - 119 mmHg. * High thigh: Pressure - mmHg: Ratio - : PVR waveform - Pulsatile * Low thigh: Pressure - mmHg: Ratio - PVR waveform: Pulsatile * Calf: Pressure - 163 mmHg: Ratio - 1.35 PVR waveform: Pulsatile * Posterior tibial Artery: Pressure - 164 mmHg: Ratio - 1.36 PVR waveform: Pulsatile * Dorsalis pedis Artery: Pressure - 162 mmHg: Ratio - 1.34 PVR waveform: Pulsatile * Great toe: Pressure - mmHg: Ratio - PVR waveform: Ankle brachial index (NOE): 1.36 LEFT LOWER EXTREMITY: * Brachial artery: Pressure - 121 mmHg. * High thigh: Pressure - mmHg: Ratio - : PVR waveform - Pulsatile * Low thigh: Pressure - mmHg: Ratio - PVR waveform: Pulsatile * Calf: Pressure - 162 mmHg: Ratio - 1.34 PVR waveform: Pulsatile * Posterior tibial Artery: Pressure - 163 mmHg: Ratio - 1.35 PVR waveform: Pulsatile * Dorsalis pedis Artery: Pressure - 158 mmHg: Ratio - 1.31 PVR waveform: Pulsatile * Great toe: Pressure - mmHg: Ratio - PVR waveform: Ankle brachial index (NOE): 1.35 OTHER FINDINGS: Right: Left: IMPRESSION: Right: The ankle pressure index of the right lower extremity is non-diagnostic due to possible arterial wall calcifications. Left: The ankle pressure index of the left lower extremity is non-diagnostic due to possible arterial wall calcifications.
[2018-02-26] MEDS: Sodium Chloride 0.9% 1,000 ML IV SCH (16:53)
--- NOTE | 2018-02-26 19:02 | CP.PCM.CON ---
History of Present Illness - History of Present Illness History of Present Illness: Mr Mac is a 53 yr old male with no PMH who presents with 15 days of worsening right lower extremity pain and infections. he states that it originally began as a scrape from a cardboard box and then became infected. he was given a prescription for clindamycin 300 mg TID for 7 days which he completed but the infection did not resolve. he states that it has become worse over the past few days and the redness has been moving up the leg. he otherwise denies fevers, chills nausea vomiting headaches. Review of Systems - Review of Systems All systems: reviewed and no additional remarkable complaints except Review of Systems: as per HPI Past Patient History - Infectious Disease Hx of Infectious Diseases: None - Past Medical History & Family History Past Medical History?: No - Past Social History Smoking Status: Never Smoked - CARDIAC Hx Cardiac Disorders: No - PULMONARY Hx Respiratory Disorders: No - NEUROLOGICAL Hx Neurological Disorder: No - HEENT Hx HEENT Problems: No - RENAL Hx Chronic Kidney Disease: No - ENDOCRINE/METABOLIC Hx Endocrine Disorders: No - HEMATOLOGICAL/ONCOLOGICAL Hx Blood Disorders: No - INTEGUMENTARY Hx Dermatological Problems: No - MUSCULOSKELETAL/RHEUMATOLOGICAL Hx Musculoskeletal Disorders: No - GASTROINTESTINAL Hx Gastrointestinal Disorders: Yes Other/Comment: anal fistula - GENITOURINARY/GYNECOLOGICAL Hx Genitourinary Disorders: No - PSYCHIATRIC Hx Substance Use: No - SURGICAL HISTORY Hx Surgeries: Yes Other/Comment: anal fistula repair. - ANESTHESIA Hx Anesthesia: Yes Hx Anesthesia Reactions: No Hx Malignant Hyperthermia: No Meds Allergies/Adverse Reactions: Allergies Allergy/AdvReac Type Severity Reaction Status Date / Time No Known Allergies Allergy Verified 12/27/15 11:39 - Medications Medications: Current Medications Acetaminophen (Tylenol 325mg Tab) 650 mg PO Q6 PRN PRN Reason: Pain, moderate (4-7) Enoxaparin Sodium (Lovenox) 40 mg SC DAILY [facility] Last Admin: 02/26/18 10:10 Dose: 40 mg Piperacillin Sod/Tazobactam (Sod 3.375 gm/ Sodium Chloride) 100 mls @ 200 mls/ hr IVPB Q8H [facility] PRN Reason: Protocol Last Admin: 02/26/18 13:00 Dose: 200 mls/hr Sodium Chloride (Sodium Chloride 0.9%) 1,000 mls @ 100 mls/hr IV .Q10H [facility] Last Admin: 02/26/18 16:53 Dose: 100 mls/hr Saccharomyces Maynori (Florastor) 250 mg PO BID [facility] Last Admin: 02/26/18 17:37 Dose: 250 mg Physical Exam - Constitutional Appears: Well, Non-toxic, No Acute Distress - Head Exam Head Exam: ATRAUMATIC, NORMOCEPHALIC - Eye Exam Eye Exam: Normal appearance - ENT Exam ENT Exam: Mucous Membranes Moist - Respiratory Exam Respiratory Exam: NORMAL BREATHING PATTERN - Cardiovascular Exam Cardiovascular Exam: +S1, +S2 - GI/Abdominal Exam GI & Abdominal Exam: Soft. absent: Tenderness - Extremities Exam Extremities exam: Positive for: calf tenderness, normal capillary refill, tenderness, pedal pulses present. Negative for: joint swelling, pedal edema Additional comments: right lower extremity has a large 6 cm x 5 cm scab with a large irregular area of surrounding induration and erythema, patient has pain with passive flexion and random muscle twitching during exam - Neurological Exam Neurological exam: Alert, Oriented x3 - Psychiatric Exam Psychiatric exam: Normal Affect, Normal Mood - Skin Skin Exam: Erythema Additional comments: large are of induartion and erythema in the right LE extending from the ankle to 5 cm below the knee anteriorly and 6 cm above the ankle posteriorly, 5 cm x 6 cm area of scabbing present on the anterolateral area of the right ankle/ inferior lower leg, skin changes are confined to the area of infection, there is no mottling or skin changes in the foot Results - Vital Signs Recent Vital Signs: Last Vital Signs Temp 98.1 F 02/26/18 15:30 Pulse 66 02/26/18 15:30 Resp 20 02/26/18 15:30 BP 110/63 02/26/18 15:30 Pulse Ox 98 02/26/18 15:30 - Labs Result Diagrams: 02/27/18 06:15 02/27/18 06:15 Labs: Laboratory Results - last 24 hr 02/26/18 02/26/18 02/26/18 07:34 07:34 07:34 WBC 5.3 RBC 3.85 L Hgb 12.0 Hct 34.1 L MCV 88.6 MCH 31.1 H MCHC 35.1 RDW 14.1 Plt Count 257 MPV 8.0 Neut % (Auto) 66.9 Lymph % (Auto) 21.1 [place] % (Auto) 9.4 Eos % (Auto) 1.6 Baso % (Auto) 1.0 Neut # (Auto) 3.6 Lymph # (Auto) 1.1 [place] # (Auto) 0.5 Eos # (Auto) 0.1 Baso # (Auto) 0.1 Sodium 141 Potassium 4.2 Chloride 107 Carbon Dioxide 26 Anion Gap 12 BUN 13 Creatinine 0.9 Est GFR ( Amer) > 60 Est GFR (Non-Af Amer) > 60 Random Glucose 94 Calcium 8.9 Phosphorus 3.6 Magnesium 1.9 Total Bilirubin 0.6 AST 18 ALT 24 Alkaline Phosphatase 65 Total Protein 6.5 Albumin 3.6 Globulin 2.8 Albumin/Globulin Ratio 1.3 Vancomycin Trough 31.1 H Assessment & Plan - Assessment and Plan (Free Text) Assessment: 53 yr old male with RLE wound infection Plan: - continue IV Zosyn - recommend ID consult d/t wound infection being resistant to clindamycin - will continue to monitor WBC and associated symptoms - will continue serial exams to monitor for development of compartment syndrome - will discuss with Dr. Arizmendi, all further recs per him Eunice Goel, PGY 1 - Date & Time Date: 02/26/18 Time: 17:45
[2018-02-27] MEDS: Piperacillin/Tazobact 3.375 GM in Sodium Chloride 100 ML IVPB SCH (05:06)
[2018-02-27] MEDS: Sodium Chloride 0.9% 1,000 ML IV SCH ×2 (05:07→21:36)
[2018-02-27 06:31] LABS: BASO # 0.1 K/uL (0.0-0.2); BASO % 0.9 % (0.0-2.0); EOS # 0.1 K/uL (0.0-0.7); EOS % 1.9 % (0.0-4.0); HEMOGLOBIN 12.8 g/dL (12.0-18.0); LYMPH # 1.3 K/uL (1.0-4.3); LYMPH % 21.3 % (20.0-40.0); MEAN CELL VOLUME 88.3 fL (80.0-94.0); MEAN CORPUSCULAR HEMOGLOBIN 29.6 pg (27.0-31.0); MEAN CORPUSCULAR HGB CONC 33.6 g/dL (33.0-37.0); MEAN PLATELET VOLUME 8.2 fL (7.2-11.7); MONO # 0.6 K/uL (0.0-0.8); NEUT % 65.9 % (50.0-75.0); NRBC % 0.2 % (0.0-2.0); RBC 4.33 Mil/uL (4.40-5.90); RED CELL DISTRIBUTION WIDTH 14.6 % (11.5-14.5); WHITE BLOOD COUNT 6.1 K/uL (4.8-10.8)
[2018-02-27 06:52] LABS: ALB/GLOB RATIO 1.3 (1.0-2.1); ALBUMIN 3.9 g/dL (3.5-5.0); ALT/SGPT 19 U/L (21-72); AST/SGOT 21 U/L (17-59); BLOOD UREA NITROGEN 14 mg/dL (9-20); CALCIUM 9.2 mg/dl (8.6-10.4); GFR AFRICAN-AMERICAN > 60; GFR NON-AFRICAN AMERICAN > 60
--- NOTE | 2018-02-27 08:24 | CP.PCM.PN ---
Subjective - Date & Time of Evaluation Date of Evaluation: 02/27/18 Time of Evaluation: 07:30 - Subjective Subjective: general surgery progress note for Dr. Arizmendi Patient seen and examined at bedside this am. No acute events overnight per nursing. patient states that he continues to have pain in his right leg that is intermittent and throbbing. he otherwise denies f/c/v/n, sensorimotor changes or a cold feeling in his feet. Objective - Vital Signs/Intake and Output Vital Signs (last 24 hours): Temp Pulse Resp BP Pulse Ox 97.6 F 60 20 97/60 L 100 02/27/18 08:00 02/27/18 08:00 02/27/18 08:00 02/27/18 08:00 02/27/18 08:00 Intake and Output: 02/27/18 02/27/18 06:59 18:59 Intake Total 1650 Balance 1650 - Medications Medications: Current Medications Acetaminophen (Tylenol 325mg Tab) 650 mg PO Q6 PRN PRN Reason: Pain, moderate (4-7) Enoxaparin Sodium (Lovenox) 40 mg SC DAILY [facility] Last Admin: 02/26/18 10:10 Dose: 40 mg Piperacillin Sod/Tazobactam (Sod 3.375 gm/ Sodium Chloride) 100 mls @ 200 mls/ hr IVPB Q8H [facility] PRN Reason: Protocol Last Admin: 02/27/18 05:06 Dose: 200 mls/hr Sodium Chloride (Sodium Chloride 0.9%) 1,000 mls @ 100 mls/hr IV .Q10H [facility] Last Admin: 02/27/18 05:07 Dose: 100 mls/hr Saccharomyces Boulardii (Florastor) 250 mg PO BID [facility] Last Admin: 02/26/18 17:37 Dose: 250 mg - Labs Labs: 02/27/18 06:15 02/27/18 06:15 PT 12.7 SECONDS (9.7-12.2) H 02/25/18 16:09 INR 1.2 02/25/18 16:09 APTT 38 SECONDS (21-34) H 02/25/18 16:09 - Constitutional Appears: Well, Non-toxic, No Acute Distress - Head Exam Head Exam: ATRAUMATIC, NORMOCEPHALIC - ENT Exam ENT Exam: Mucous Membranes Moist - Respiratory Exam Respiratory Exam: NORMAL BREATHING PATTERN - Cardiovascular Exam Cardiovascular Exam: +S1, +S2 - GI/Abdominal Exam GI & Abdominal Exam: Soft. absent: Tenderness - Extremities Exam Extremities Exam: Calf Tenderness, Tenderness. absent: Pedal Edema Additional comments: 3cm x 5 cm dark scab on the inferolateral area of the right ankle, erythema and induration extending up to 6 cm below the knee, erythema does seem to be receding from the previously drawn lines - Neurological Exam Neurological Exam: Alert, Awake, Oriented x3 - Psychiatric Exam Psychiatric exam: Normal Affect, Normal Mood - Skin Skin Exam: Dry, Warm. absent: Pallor, Pallor Additional comments: 3cm x 5 cm dark scab on the inferolateral area of the right ankle, erythema and induration extending up to 6 cm below the knee, erythema does seem to be receding from the previously drawn lines Assessment and Plan - Assessment and Plan (Free Text) Assessment: 53 yr old male with RLE infected wound that has been resistant to clindamycin Plan: - continue abx - continue pain control as needed with tylenol - G- rods in wound culture will f/u final results - blood cx continue to be negative -elevate leg and place compression stockings to treat venous stasis disease -no surgical intervention at this time, please reconsult if necessary - plan discussed with Dr. Arizmendi, all further recs per him Eunice Goel, PGY 1
[2018-02-27] MEDS: Saccharomyces Boulardi 250 mg Cap PO SCH ×2 (10:02→17:30)
[2018-02-27] MEDS: Enoxaparin 40 mg Syringe SC SCH (10:02)
--- NOTE | 2018-02-27 12:54 | CP.PCM.CON ---
History of Present Illness - History of Present Illness History of Present Illness: Podiatry Consult Note - Dr. Smith 53 y/o male with no significant PMHx seen at bedside in regards to right lower leg wound. He states he scraped the leg against some cardboard over 3 weeks ago and went to the emergency room, where he got antibiotics and was informed he did not have a clot in his leg. States he thinks the wound got worse so he came back to the ED two days ago. States the wound got bigger and was draining a yellow fluid. Denies F/C/N/V/CP/SOB. Denies numbness, tingling or burning in the extremities. States the wound and the surrounding area of the lower leg are very painful, even to slight pressure. PSH: anal fistulectomy All: NKDA SocHx: social EtOH; denies cigarette or drug use Review of Systems - Review of Systems All systems: reviewed and no additional remarkable complaints except (per HPI) Past Patient History - Infectious Disease Hx of Infectious Diseases: None - Past Medical History & Family History Past Medical History?: No - Past Social History Smoking Status: Never Smoked - CARDIAC Hx Cardiac Disorders: No - PULMONARY Hx Respiratory Disorders: No - NEUROLOGICAL Hx Neurological Disorder: No - HEENT Hx HEENT Problems: No - RENAL Hx Chronic Kidney Disease: No - ENDOCRINE/METABOLIC Hx Endocrine Disorders: No - HEMATOLOGICAL/ONCOLOGICAL Hx Blood Disorders: No - INTEGUMENTARY Hx Dermatological Problems: No - MUSCULOSKELETAL/RHEUMATOLOGICAL Hx Musculoskeletal Disorders: No - GASTROINTESTINAL Hx Gastrointestinal Disorders: Yes Other/Comment: anal fistula - GENITOURINARY/GYNECOLOGICAL Hx Genitourinary Disorders: No - PSYCHIATRIC Hx Substance Use: No - SURGICAL HISTORY Hx Surgeries: Yes Other/Comment: anal fistula repair. - ANESTHESIA Hx Anesthesia: Yes Hx Anesthesia Reactions: No Hx Malignant Hyperthermia: No Meds Allergies/Adverse Reactions: Allergies Allergy/AdvReac Type Severity Reaction Status Date / Time No Known Allergies Allergy Verified 12/27/15 11:39 - Medications Medications: Current Medications Acetaminophen (Tylenol 325mg Tab) 650 mg PO Q6 PRN PRN Reason: Pain, moderate (4-7) Enoxaparin Sodium (Lovenox) 40 mg SC DAILY [facility] Last Admin: 02/27/18 10:02 Dose: 40 mg Sodium Chloride (Sodium Chloride 0.9%) 1,000 mls @ 100 mls/hr IV .Q10H [facility] Last Admin: 02/27/18 05:07 Dose: 100 mls/hr Meropenem 1 gm/ Sodium (Chloride) 100 mls @ 100 mls/hr IVPB ONCE ONE PRN Reason: Protocol Stop: 02/27/18 14:59 Saccharomyces Boulardii (Florastor) 250 mg PO BID [facility] Last Admin: 02/27/18 10:02 Dose: 250 mg Physical Exam - Constitutional Appears: Well, Non-toxic, No Acute Distress - Extremities Exam Additional comments: RLE focused exam: Vasc: DP/PT pulses palpable 2/4 .Temperature gradient warm cool. Pedal edema noted to distal 1/2 of leg, +2 nonpitting. CFT < 3 sec to all digits Derm: Ulceration with hyperkeratotic roof and scab formation noted to distal 1/ 3 of anterior leg measuring approx 4cm x 3cm x 0.1cm. Vale wound exhibits hyperpigmented skin with hemosiderin deposits. No erythema, no ecchymosis, no malodor, nofluctuance, no drainage, no purulence. Neuro: Protective sensation grossly intact Ortho: Moderate tenderness to palpation of wound and vale wound region. No posterior calf tenderness upon calf squeeze - Neurological Exam Neurological exam: Alert, Oriented x3 - Psychiatric Exam Psychiatric exam: Normal Affect, Normal Mood Results - Vital Signs Recent Vital Signs: Last Vital Signs Temp 97.6 F 02/27/18 08:00 Pulse 60 02/27/18 08:00 Resp 20 02/27/18 08:00 BP 97/60 L 02/27/18 08:00 Pulse Ox 100 02/27/18 08:00 - Labs Result Diagrams: 02/27/18 06:15 02/27/18 06:15 Labs: Laboratory Results - last 24 hr 02/27/18 02/27/18 02/27/18 06:15 06:15 06:15 WBC 6.1 RBC 4.33 L Hgb 12.8 Hct 38.2 MCV 88.3 MCH 29.6 MCHC 33.6 RDW 14.6 H Plt Count 275 MPV 8.2 Neut % (Auto) 65.9 Lymph % (Auto) 21.3 [place] % (Auto) 10.0 Eos % (Auto) 1.9 Baso % (Auto) 0.9 Neut # (Auto) 4.0 Lymph # (Auto) 1.3 [place] # (Auto) 0.6 Eos # (Auto) 0.1 Baso # (Auto) 0.1 Sodium 141 Potassium 3.8 Chloride 104 Carbon Dioxide 28 Anion Gap 13 BUN 14 Creatinine 1.1 Est GFR ( Amer) > 60 Est GFR (Non-Af Amer) > 60 Random Glucose 93 Calcium 9.2 Phosphorus 4.0 Magnesium 1.8 Total Bilirubin 0.3 AST 21 ALT 19 L D Alkaline Phosphatase 70 Total Protein 7.0 Albumin 3.9 Globulin 3.1 Albumin/Globulin Ratio 1.3 Random Vancomycin < 5.0 Assessment & Plan - Assessment and Plan (Free Text) Assessment: 53 y/o male with right anterior lower leg infected wound Plan: Pt seen and evaluated at bedside Discussed with attending Dr. Smith Absent leukocytosis, afebrile at present Pain controlled by primary team Wound cleaned with saline, dressed with xeroform,ABD, DSD, compression dressing Continue IV abx No surgical intervention needed at this time Arterial studies show false elevations likely indicative of calcified vessels Will continue to follow pt Thank you for this consult
--- NOTE | 2018-02-27 13:18 | CP.PCM.PN ---
<Isabel Osborne - Last Filed: 02/27/18 16:16> Subjective - Date & Time of Evaluation Date of Evaluation: 02/27/18 Time of Evaluation: 13:08 - Subjective Subjective: PGY-1 Medicine Progress Note Patient seen and examined at bedside. Patient reports improved pain and site of infection is shrinking from margins drawn yesterday. Patient will require a cane for ambulation assistance upon discharge. Patient denies fevers, chills, shortness of breath, chest pain, n/v, and constipation or diarrhea. Objective - Vital Signs/Intake and Output Vital Signs (last 24 hours): Temp Pulse Resp BP Pulse Ox 97.6 F 60 20 97/60 L 100 02/27/18 08:00 02/27/18 08:00 02/27/18 08:00 02/27/18 08:00 02/27/18 08:00 Intake and Output: 02/27/18 02/27/18 06:59 18:59 Intake Total 1650 Balance 1650 - Medications Medications: Current Medications Acetaminophen (Tylenol 325mg Tab) 650 mg PO Q6 PRN PRN Reason: Pain, moderate (4-7) Enoxaparin Sodium (Lovenox) 40 mg SC DAILY [facility] Last Admin: 02/27/18 10:02 Dose: 40 mg Sodium Chloride (Sodium Chloride 0.9%) 1,000 mls @ 100 mls/hr IV .Q10H [facility] Last Admin: 02/27/18 05:07 Dose: 100 mls/hr Meropenem 1 gm/ Sodium (Chloride) 100 mls @ 100 mls/hr IVPB ONCE ONE PRN Reason: Protocol Stop: 02/27/18 14:59 Saccharomyces Boulardii (Florastor) 250 mg PO BID [facility] Last Admin: 02/27/18 10:02 Dose: 250 mg - Labs Labs: 02/27/18 06:15 02/27/18 06:15 PT 12.7 SECONDS (9.7-12.2) H 02/25/18 16:09 INR 1.2 02/25/18 16:09 APTT 38 SECONDS (21-34) H 02/25/18 16:09 - Constitutional Appears: Non-toxic, No Acute Distress - Head Exam Head Exam: NORMAL INSPECTION, NORMOCEPHALIC - Eye Exam Eye Exam: EOMI, Normal appearance. absent: Nystagmus, Scleral icterus - Respiratory Exam Respiratory Exam: Clear to Ausculation Bilateral, NORMAL BREATHING PATTERN. absent: Decreased Breath Sounds, Rhonchi, Wheezes - Cardiovascular Exam Cardiovascular Exam: REGULAR RHYTHM, +S1, +S2. absent: Murmur - GI/Abdominal Exam GI & Abdominal Exam: Soft, Normal Bowel Sounds. absent: Distended, Firm, Tenderness - Extremities Exam Extremities Exam: Normal Inspection, Tenderness. absent: Calf Tenderness, Pedal Edema Additional comments: 6cm below knee to above ankle: crusting lesion with likely hemosiderin - Neurological Exam Neurological Exam: Alert, Awake, Normal Gait, Oriented x3 - Psychiatric Exam Psychiatric exam: Normal Affect, Normal Mood - Skin Skin Exam: Normal Color Assessment and Plan - Assessment and Plan (Free Text) Assessment: Patient is a 53 y.o male with PMH of anal fistula presents with complain of right leg wound; came to ED on 02/13 for leg wound and abdomen pain; discharged with outpatient antibiotics, clindamycin; failed outpatient therapy with wound increasing in size, weeping, and malodorous; currently being treated for cellulitis; wound culture positive for Klebsiell pneumoniae Plan: Cellulitis 02/13/18 Lower extremity u/s: negative for DVT 02/25/18 Tibia/Fibula Xray: negative for osteo; subcutaneous edema present 02/25/18 Lower extremity u/s: pending Wound Culture positive for Klebsiella pneumoniae- resistant to Vanco Vancomycin held; Zosyn held as meropenem is more sensitive Meropenem 1g IV 1x dose; ID consulted: Dr. Mccall for further antibiotic management (meropenem drip daily) Podiatry Consulted- Dr. Smith- Recommendations appreciated Prophylaxis GI prophylaxis: Not indicated at this time Lovenox 40mg SC daily Florastor 250mg po bid <Diana Barillas V - Last Filed: 02/28/18 20:48> Objective - Vital Signs/Intake and Output Vital Signs (last 24 hours): Temp Pulse Resp BP Pulse Ox 98.6 F 71 20 115/67 97 02/28/18 16:13 02/28/18 16:13 02/28/18 16:13 02/28/18 16:13 02/28/18 16:13 - Medications Medications: Current Medications Acetaminophen (Tylenol 325mg Tab) 650 mg PO Q6 PRN PRN Reason: Pain, moderate (4-7) Enoxaparin Sodium (Lovenox) 40 mg SC DAILY [facility] Last Admin: 02/28/18 10:44 Dose: 40 mg Sodium Chloride (Sodium Chloride 0.9%) 1,000 mls @ 100 mls/hr IV .Q10H [facility] Last Admin: 02/28/18 10:48 Dose: 100 mls/hr Ciprofloxacin (Cipro 400mg/200ml Dsw) 400 mg in 200 mls @ 133 mls/hr IVPB Q12H [facility] PRN Reason: Protocol Last Admin: 02/28/18 08:44 Dose: 133 mls/hr Saccharomyces Boulardii (Florastor) 250 mg PO BID [facility] Last Admin: 02/28/18 17:35 Dose: 250 mg - Labs Labs: 02/27/18 06:15 02/27/18 06:15 PT 12.7 SECONDS (9.7-12.2) H 02/25/18 16:09 INR 1.2 02/25/18 16:09 APTT 38 SECONDS (21-34) H 02/25/18 16:09 Attending/Attestation - Attestation I have personally seen and examined this patient.: Yes I have fully participated in the care of the patient.: Yes I have reviewed all pertinent clinical information, including history, physical exam and plan: Yes Notes (Text): This is late computer entry for 02/27/18. Patient seen, examined and case discussed with medical office scheduler. Patient seen during rounds this morning. Patient's erythema is improving. Appears that patient has venous stasis ulcer, superifical. Mild swelling which is better. Patient seen with podiatry resident. Wound culture resulted. Given dose of meropenem IV given sensitivity; will consult ID to see if Meropenem which is ID restricted needs to be continued or if cipro can be used. Plan for possible discharge planning over the weekend. Assessment/Plan (1) Cellulitis of right leg Right lower extremity Leg wound Possible peripheral artery disease Assessment and Plan: * Refractory to PO Clindamycin * Vascular surgery (Dr. Arizmendi) on board-->help appreciated * Podiatry surgery (Dr. Smith) on board-->help appreciated * Infectious Disease (Dr. Mccall) on board-->help appreciated * Imaging/ Labs: 02/13 ( Venous Doppler): No evidence of deep or superficial vein thrombosis of the right lower extremity with venous flow. Normal valve function noted of right side * 02/25/18 (Right tibia and fibula): No radiographic evidence for acute osteomyelitis. No soft tissue gas. Subcutaneous edema. * 02/26/18: (arterial doppler): NOE non diagnostic due to possibler arterial wall calcifications Medications/management: * Stopped Vancomycin 1gm Q12H secondary to elevated vancomycin level on 02/26/18 * Florastor 250mg PO BID * Encourage right leg elevation * Wound culture (02/25/18): Klebsiella Pneumoniae * Sensitive to Cipro and Meropenem * Given one dose of Meropenem 1 gram IV X1 * ID has started Ciprofloxacin 400mg IVQ12 H (active since 02/27/18) * Blood culture (02/25/18): no growth after 3 days X2 Status: Acute (2) Prophylactic measure Assessment and Plan: * GI ppx: Not Indicated * DVT ppx: Lovenox 40mg subqdailt * Florastor 250mg PO BID * NS 100cc/hr
[2018-02-27] MEDS ORDERED: Meropenem 1 GM in Sodium Chloride 0.9% 100 ML IVPB ONE (14:00)
--- NOTE | 2018-02-27 20:03 | CP.PCM.CON ---
History of Present Illness - History of Present Illness History of Present Illness: dictated Past Patient History - Infectious Disease Hx of Infectious Diseases: None - Past Medical History & Family History Past Medical History?: No - Past Social History Smoking Status: Never Smoked - CARDIAC Hx Cardiac Disorders: No - PULMONARY Hx Respiratory Disorders: No - NEUROLOGICAL Hx Neurological Disorder: No - HEENT Hx HEENT Problems: No - RENAL Hx Chronic Kidney Disease: No - ENDOCRINE/METABOLIC Hx Endocrine Disorders: No - HEMATOLOGICAL/ONCOLOGICAL Hx Blood Disorders: No - INTEGUMENTARY Hx Dermatological Problems: No - MUSCULOSKELETAL/RHEUMATOLOGICAL Hx Musculoskeletal Disorders: No - GASTROINTESTINAL Hx Gastrointestinal Disorders: Yes Other/Comment: anal fistula - GENITOURINARY/GYNECOLOGICAL Hx Genitourinary Disorders: No - PSYCHIATRIC Hx Substance Use: No - SURGICAL HISTORY Hx Surgeries: Yes Other/Comment: anal fistula repair. - ANESTHESIA Hx Anesthesia: Yes Hx Anesthesia Reactions: No Hx Malignant Hyperthermia: No Meds Allergies/Adverse Reactions: Allergies Allergy/AdvReac Type Severity Reaction Status Date / Time No Known Allergies Allergy Verified 12/27/15 11:39 - Medications Medications: Current Medications Acetaminophen (Tylenol 325mg Tab) 650 mg PO Q6 PRN PRN Reason: Pain, moderate (4-7) Enoxaparin Sodium (Lovenox) 40 mg SC DAILY [facility] Last Admin: 02/27/18 10:02 Dose: 40 mg Sodium Chloride (Sodium Chloride 0.9%) 1,000 mls @ 100 mls/hr IV .Q10H [facility] Last Admin: 02/27/18 05:07 Dose: 100 mls/hr Ciprofloxacin (Cipro 400mg/200ml Dsw) 400 mg in 200 mls @ 133 mls/hr IVPB Q12H [facility] PRN Reason: Protocol Saccharomyces Boulardii (Florastor) 250 mg PO BID [facility] Last Admin: 02/27/18 17:30 Dose: 250 mg Results - Vital Signs Recent Vital Signs: Last Vital Signs Temp 98.4 F 02/27/18 16:00 Pulse 70 02/27/18 16:00 Resp 20 02/27/18 16:00 BP 118/67 02/27/18 16:00 Pulse Ox 99 02/27/18 16:00 - Labs Result Diagrams: 02/27/18 06:15 02/27/18 06:15 Labs: Laboratory Results - last 24 hr 02/27/18 02/27/18 02/27/18 06:15 06:15 06:15 WBC 6.1 RBC 4.33 L Hgb 12.8 Hct 38.2 MCV 88.3 MCH 29.6 MCHC 33.6 RDW 14.6 H Plt Count 275 MPV 8.2 Neut % (Auto) 65.9 Lymph % (Auto) 21.3 [place] % (Auto) 10.0 Eos % (Auto) 1.9 Baso % (Auto) 0.9 Neut # (Auto) 4.0 Lymph # (Auto) 1.3 [place] # (Auto) 0.6 Eos # (Auto) 0.1 Baso # (Auto) 0.1 Sodium 141 Potassium 3.8 Chloride 104 Carbon Dioxide 28 Anion Gap 13 BUN 14 Creatinine 1.1 Est GFR ( Amer) > 60 Est GFR (Non-Af Amer) > 60 Random Glucose 93 Calcium 9.2 Phosphorus 4.0 Magnesium 1.8 Total Bilirubin 0.3 AST 21 ALT 19 L D Alkaline Phosphatase 70 Total Protein 7.0 Albumin 3.9 Globulin 3.1 Albumin/Globulin Ratio 1.3 Random Vancomycin < 5.0
[2018-02-27] MEDS: Ciprofloxacin 400mg/200ml D5W 400 MG/200 ML BAG IVPB SCH (21:39)
--- NOTE | 2018-02-28 05:42 | CP.PCM.PN ---
<Michelle Wolff - Last Filed: 02/28/18 08:01> Subjective - Date & Time of Evaluation Date of Evaluation: 02/28/18 Time of Evaluation: 05:42 - Subjective Subjective: Pt seen and examined at bedside, no acute events today. Pt continues to have improvement in pain. Denies chest pain, SOB, abd pain, nause, vomiting, diarrhea, constipation Objective - Vital Signs/Intake and Output Vital Signs (last 24 hours): Temp Pulse Resp BP Pulse Ox 97.8 F 66 20 110/64 98 02/28/18 00:00 02/28/18 00:00 02/28/18 00:00 02/28/18 00:00 02/28/18 00:00 Intake and Output: 02/27/18 02/28/18 18:59 06:59 Intake Total 800 1000 Balance 800 1000 - Medications Medications: Current Medications Acetaminophen (Tylenol 325mg Tab) 650 mg PO Q6 PRN PRN Reason: Pain, moderate (4-7) Enoxaparin Sodium (Lovenox) 40 mg SC DAILY [facility] Last Admin: 02/27/18 10:02 Dose: 40 mg Sodium Chloride (Sodium Chloride 0.9%) 1,000 mls @ 100 mls/hr IV .Q10H [facility] Last Admin: 02/27/18 21:36 Dose: 100 mls/hr Ciprofloxacin (Cipro 400mg/200ml Dsw) 400 mg in 200 mls @ 133 mls/hr IVPB Q12H [facility] PRN Reason: Protocol Last Admin: 02/27/18 21:39 Dose: 133 mls/hr Saccharomyces Boulardii (Florastor) 250 mg PO BID [facility] Last Admin: 02/27/18 17:30 Dose: 250 mg - Labs Labs: 02/27/18 06:15 02/27/18 06:15 PT 12.7 SECONDS (9.7-12.2) H 02/25/18 16:09 INR 1.2 02/25/18 16:09 APTT 38 SECONDS (21-34) H 02/25/18 16:09 - Constitutional Appears: Well, Non-toxic, No Acute Distress - Head Exam Head Exam: ATRAUMATIC, NORMAL INSPECTION, NORMOCEPHALIC - Eye Exam Eye Exam: EOMI, Normal appearance - ENT Exam ENT Exam: Mucous Membranes Moist, Normal Exam - Neck Exam Neck Exam: Normal Inspection - Respiratory Exam Respiratory Exam: Clear to Ausculation Bilateral, NORMAL BREATHING PATTERN. absent: Rhonchi, Wheezes - Cardiovascular Exam Cardiovascular Exam: REGULAR RHYTHM, +S1, +S2. absent: Tachycardia - GI/Abdominal Exam GI & Abdominal Exam: Soft, Normal Bowel Sounds - Extremities Exam Extremities Exam: Normal Capillary Refill. absent: Calf Tenderness, Normal Inspection (right LE mid morales down to ankle, lesion flakey and crusty) - Neurological Exam Neurological Exam: Alert, Awake, Oriented x3 Assessment and Plan - Assessment and Plan (Free Text) Assessment: 53 yo M w/ PMHx of RLE cellulitis, anal fistula admitted w/ recurrent Klebsiella + RLE cellulitis refractory to Clindamycin treatment(02/13) 1. RLE cellulitis -Klebsiella + -wound care -cipro 400 q12 -Florastor -ID consult Dr. Mccall -Podiatry consult Dr. Smith -janie sx. Dr Arizmendi 2. Ppx -lovenox -SCD contraindicated -GI ppx not warranted Dispo: pt likely to go home 03/01 <Diana Barillas V - Last Filed: 02/28/18 20:52> Objective - Vital Signs/Intake and Output Vital Signs (last 24 hours): Temp Pulse Resp BP Pulse Ox 98.6 F 71 20 115/67 97 02/28/18 16:13 02/28/18 16:13 02/28/18 16:13 02/28/18 16:13 02/28/18 16:13 - Medications Medications: Current Medications Acetaminophen (Tylenol 325mg Tab) 650 mg PO Q6 PRN PRN Reason: Pain, moderate (4-7) Enoxaparin Sodium (Lovenox) 40 mg SC DAILY [facility] Last Admin: 02/28/18 10:44 Dose: 40 mg Sodium Chloride (Sodium Chloride 0.9%) 1,000 mls @ 100 mls/hr IV .Q10H [facility] Last Admin: 02/28/18 10:48 Dose: 100 mls/hr Ciprofloxacin (Cipro 400mg/200ml Dsw) 400 mg in 200 mls @ 133 mls/hr IVPB Q12H [facility] PRN Reason: Protocol Last Admin: 02/28/18 08:44 Dose: 133 mls/hr Saccharomyces Boulardii (Florastor) 250 mg PO BID [facility] Last Admin: 02/28/18 17:35 Dose: 250 mg - Labs Labs: 02/27/18 06:15 02/27/18 06:15 PT 12.7 SECONDS (9.7-12.2) H 02/25/18 16:09 INR 1.2 02/25/18 16:09 APTT 38 SECONDS (21-34) H 02/25/18 16:09 Attending/Attestation - Attestation I have personally seen and examined this patient.: Yes I have fully participated in the care of the patient.: Yes I have reviewed all pertinent clinical information, including history, physical exam and plan: Yes Notes (Text): Patient seen, examined, and case discussed with day-time resident. patient's swelling has improved and erythema is resolving. We will plan for discharge planning tomorrow on Ciprofloxacin 500mg PO BID for 7 to 10 days. We will refer him to the [facility] ([phone]) upon follow- up wherein he can obtain podiatry referral for further evaluation of venous insufficiency. (1) Cellulitis of right leg Right lower extremity Leg wound Possible peripheral artery disease Assessment and Plan: * Refractory to PO Clindamycin * Vascular surgery (Dr. Arizmendi) on board-->help appreciated * Podiatry surgery (Dr. Smith) on board-->help appreciated * Infectious Disease (Dr. Mccall) on board-->help appreciated * Imaging/ Labs: 02/13 ( Venous Doppler): No evidence of deep or superficial vein thrombosis of the right lower extremity with venous flow. Normal valve function noted of right side * 02/25/18 (Right tibia and fibula): No radiographic evidence for acute osteomyelitis. No soft tissue gas. Subcutaneous edema. * 02/26/18: (arterial doppler): NOE non diagnostic due to possibler arterial wall calcifications Medications/management: * Stopped Vancomycin 1gm Q12H secondary to elevated vancomycin level on 02/26/18 * Florastor 250mg PO BID * Encourage right leg elevation * Wound culture (02/25/18): Klebsiella Pneumoniae * Sensitive to Cipro and Meropenem * Given one dose of Meropenem 1 gram IV X1 * ID has started Ciprofloxacin 400mg IVQ12 H (active since 02/27/18) * Blood culture (02/25/18): no growth after 3 days X2 Status: Acute (2) Prophylactic measure Assessment and Plan: * GI ppx: Not Indicated * DVT ppx: Lovenox 40mg subqdaily * Florastor 250mg PO BID * NS 100cc/hr
[2018-02-28] MEDS: Ciprofloxacin 400mg/200ml D5W 400 MG/200 ML BAG IVPB SCH ×2 (08:44→21:39)
[2018-02-28] MEDS: Saccharomyces Boulardi 250 mg Cap PO SCH ×2 (10:44→17:35)
[2018-02-28] MEDS: Enoxaparin 40 mg Syringe SC SCH (10:44)
[2018-02-28] MEDS: Sodium Chloride 0.9% 1,000 ML IV SCH ×3 (10:44→21:40)
--- NOTE | 2018-02-28 14:25 | CP.PCM.PN ---
Subjective - Date & Time of Evaluation Date of Evaluation: 02/28/18 Time of Evaluation: 11:00 - Subjective Subjective: dictated Objective - Vital Signs/Intake and Output Vital Signs (last 24 hours): Temp Pulse Resp BP Pulse Ox 98.1 F 76 20 108/70 98 02/28/18 07:58 02/28/18 07:58 02/28/18 07:58 02/28/18 07:58 02/28/18 07:58 Intake and Output: 02/28/18 02/28/18 06:59 18:59 Intake Total 1000 Balance 1000 - Medications Medications: Current Medications Acetaminophen (Tylenol 325mg Tab) 650 mg PO Q6 PRN PRN Reason: Pain, moderate (4-7) Enoxaparin Sodium (Lovenox) 40 mg SC DAILY [facility] Last Admin: 02/28/18 10:44 Dose: 40 mg Sodium Chloride (Sodium Chloride 0.9%) 1,000 mls @ 100 mls/hr IV .Q10H [facility]LESTINA Last Admin: 02/28/18 10:48 Dose: 100 mls/hr Ciprofloxacin (Cipro 400mg/200ml Dsw) 400 mg in 200 mls @ 133 mls/hr IVPB Q12H CELESTINA PRN Reason: Protocol Last Admin: 02/28/18 08:44 Dose: 133 mls/hr Saccharomyces Boulardii (Florastor) 250 mg PO BID [facility] Last Admin: 02/28/18 10:44 Dose: 250 mg - Labs Labs: 02/27/18 06:15 02/27/18 06:15 PT 12.7 SECONDS (9.7-12.2) H 02/25/18 16:09 INR 1.2 02/25/18 16:09 APTT 38 SECONDS (21-34) H 02/25/18 16:09
--- NOTE | 2018-02-28 20:13 | PN ---
Copied To: Srikanth Mccall MD Attending MD: Srikanth Mccall MD DATE: 02/28/2018 SUBJECTIVE: The patient was seen today and the patient is feeling a lot better. He denies much pain. He says the pain is less now. He has been on IV antibiotics. I opened the wound to see what was happening there. PHYSICAL EXAMINATION: VITAL SIGNS: T-max is 98.1, pulse 76, blood pressure 108/70, and respirations 20. HEENT: Head is atraumatic, normocephalic. NECK: Supple. LUNGS: Clear. HEART: S1 and S2 regular. ABDOMEN: Soft and nontender. No guarding and no rigidity present. EXTREMITIES: The right leg has this area of redness, which has been decreased now. There is some hyperpigmentation and he was having right leg pain, which is throbbing and intermittent before and was seen by the Vascular. The right leg has decreasing induration and now has some areas of superficial on the left lateral aspect of the leg just above the medial malleolar, which seemed to be healing and is superficial. His cultures came back as klebsiella, which is Cipro sensitive and is ESBL negative. Medication he was getting, we have changed it to Cipro yesterday and should be fine. ASSESSMENT AND PLAN: While looking to the x-ray of tibia and fibula which was done on 02/25/2018, it just shows subcutaneous edema. I think it is improving and probably at some point he can go home, maybe Friday or Friday, he can go on Cipro 500 mg b.i.d. for 7 to 10 days. Srikanth Mccall MD
[2018-03-01 08:01] VITALS: BP 116/65; PULSE 72; TEMP 97.6
[2018-03-01 08:15] LABS: BASO # 0.1 K/uL (0.0-0.2); BASO % 0.9 % (0.0-2.0); EOS # 0.1 K/uL (0.0-0.7); EOS % 1.9 % (0.0-4.0); HEMOGLOBIN 13.4 g/dL (12.0-18.0); LYMPH # 1.5 K/uL (1.0-4.3); LYMPH % 21.3 % (20.0-40.0); MEAN CELL VOLUME 88.5 fL (80.0-94.0); MEAN CORPUSCULAR HEMOGLOBIN 30.4 pg (27.0-31.0); MEAN CORPUSCULAR HGB CONC 34.4 g/dL (33.0-37.0); MEAN PLATELET VOLUME 8.4 fL (7.2-11.7); MONO # 0.7 K/uL (0.0-0.8); MONO % 9.2 % (0.0-10.0); NEUT # 4.8 K/uL (1.8-7.0); NEUT % 66.7 % (50.0-75.0); RBC 4.41 Mil/uL (4.40-5.90); RED CELL DISTRIBUTION WIDTH 14.6 % (11.5-14.5); WHITE BLOOD COUNT 7.2 K/uL (4.8-10.8)
[2018-03-01] MEDS: Ciprofloxacin 400mg/200ml D5W 400 MG/200 ML BAG IVPB SCH (08:37)
[2018-03-01] MEDS: Sodium Chloride 0.9% 1,000 ML IV SCH (08:42)
[2018-03-01 08:45] LABS: ALB/GLOB RATIO 1.3 (1.0-2.1); ALBUMIN 3.8 g/dL (3.5-5.0); ALT/SGPT 18 U/L (21-72); AST/SGOT 24 U/L (17-59); BLOOD UREA NITROGEN 17 mg/dL (9-20); CALCIUM 9.1 mg/dl (8.6-10.4); GFR AFRICAN-AMERICAN > 60; GFR NON-AFRICAN AMERICAN > 60
[2018-03-01] MEDS: Saccharomyces Boulardi 250 mg Cap PO SCH (10:47)
[2018-03-01] MEDS: Enoxaparin 40 mg Syringe SC SCH (10:47)
--- NOTE | 2018-03-01 12:45 | CP.PCM.DIS ---
Provider - Provider Date of Admission: 02/25/18 18:18 Attending physician: Diana Barillas DO Hospital Course - Lab Results Lab Results: Micro Results 02/25/18 16:05 Blood Blood Culture - Preliminary NO GROWTH AFTER 3 DAYS 02/25/18 15:50 Blood Blood Culture - Preliminary NO GROWTH AFTER 3 DAYS 02/25/18 17:25 Leg - Right Gram Stain - Final 02/25/18 17:25 Leg - Right Wound Culture - Final Klebsiella Pneumoniae Ssp Pneu Most Recent Lab Values WBC 7.2 K/uL (4.8-10.8) 03/01/18 08:01 RBC 4.41 Mil/uL (4.40-5.90) 03/01/18 08:01 Hgb 13.4 g/dL (12.0-18.0) 03/01/18 08:01 Hct 39.1 % (35.0-51.0) 03/01/18 08:01 MCV 88.5 fL (80.0-94.0) 03/01/18 08:01 MCH 30.4 pg (27.0-31.0) 03/01/18 08:01 MCHC 34.4 g/dL (33.0-37.0) 03/01/18 08:01 RDW 14.6 % (11.5-14.5) H 03/01/18 08:01 Plt Count 305 K/uL (130-400) 03/01/18 08:01 MPV 8.4 fL (7.2-11.7) 03/01/18 08:01 Neut % (Auto) 66.7 % (50.0-75.0) 03/01/18 08:01 Lymph % (Auto) 21.3 % (20.0-40.0) 03/01/18 08:01 [place] % (Auto) 9.2 % (0.0-10.0) 03/01/18 08:01 Eos % (Auto) 1.9 % (0.0-4.0) 03/01/18 08:01 Baso % (Auto) 0.9 % (0.0-2.0) 03/01/18 08:01 Neut # (Auto) 4.8 K/uL (1.8-7.0) 03/01/18 08:01 Lymph # (Auto) 1.5 K/uL (1.0-4.3) 03/01/18 08:01 [place] # (Auto) 0.7 K/uL (0.0-0.8) 03/01/18 08:01 Eos # (Auto) 0.1 K/uL (0.0-0.7) 03/01/18 08:01 Baso # (Auto) 0.1 K/uL (0.0-0.2) 03/01/18 08:01 ESR 37 mm/hr (0-15) H 02/25/18 16:09 PT 12.7 SECONDS (9.7-12.2) H 02/25/18 16:09 INR 1.2 02/25/18 16:09 APTT 38 SECONDS (21-34) H 02/25/18 16:09 pO2 28 mm/Hg (30-55) L 02/25/18 16:10 VBG pH 7.38 (7.32-7.43) 02/25/18 16:10 VBG pCO2 46 mmHg (40-60) 02/25/18 16:10 VBG HCO3 24.8 mmol/L 02/25/18 16:10 VBG Total CO2 28.6 mmol/L (22-28) H 02/25/18 16:10 VBG O2 Sat (Calc) 63.6 % (40-65) 02/25/18 16:10 VBG Base Excess 1.5 mmol/L (0.0-2.0) 02/25/18 16:10 VBG Potassium 3.5 mmol/L (3.6-5.2) L 02/25/18 16:10 Sodium 141.0 mmol/l (132-148) 02/25/18 16:10 Chloride 108.0 mmol/L (98-107) H 02/25/18 16:10 Glucose 95 mg/dl (75-110) 02/25/18 16:10 Lactate 1.1 mmol/L (0.7-2.1) 02/25/18 16:10 Sodium 139 mmol/L (132-148) 03/01/18 08:01 Potassium 4.2 mmol/L (3.6-5.2) 03/01/18 08:01 Chloride 105 mmol/L (98-107) 03/01/18 08:01 Carbon Dioxide 24 mmol/L (22-30) 03/01/18 08:01 Anion Gap 14 (10-20) 03/01/18 08:01 BUN 17 mg/dL (9-20) 03/01/18 08:01 Creatinine 1.0 mg/dL (0.8-1.5) 03/01/18 08:01 Est GFR ( Amer) > 60 03/01/18 08:01 Est GFR (Non-Af Amer) > 60 03/01/18 08:01 Random Glucose 88 mg/dL (75-110) 03/01/18 08:01 Calcium 9.1 mg/dl (8.6-10.4) 03/01/18 08:01 Phosphorus 3.6 mg/dL (2.5-4.5) 03/01/18 08:01 Magnesium 1.8 mg/dL (1.6-2.3) 03/01/18 08:01 Total Bilirubin 0.4 mg/dL (0.2-1.3) 03/01/18 08:01 AST 24 U/L (17-59) 03/01/18 08:01 ALT 18 U/L (21-72) L 03/01/18 08:01 Alkaline Phosphatase 74 U/L (38-126) 03/01/18 08:01 Total Protein 6.7 g/dL (6.3-8.3) 03/01/18 08:01 Albumin 3.8 g/dL (3.5-5.0) 03/01/18 08:01 Globulin 2.9 gm/dL (2.2-3.9) 03/01/18 08:01 Albumin/Globulin Ratio 1.3 (1.0-2.1) 03/01/18 08:01 Venous Blood Potassium 3.5 mmol/L (3.6-5.2) L 02/25/18 16:10 Vancomycin Trough 31.1 ug/mL (5.0-10.0) H 02/26/18 07:34 Random Vancomycin < 5.0 ug/mL 02/27/18 06:15 Discharge Exam - Head Exam Head Exam: ATRAUMATIC, NORMAL INSPECTION, NORMOCEPHALIC Discharge Plan - Follow Up Plan Condition: GOOD Disposition: HOME/ ROUTINE
[2018-03-01] MEDS ORDERED: Pneumococcal 23-Valent Vaccine IM ONE (14:44)
--- NOTE | 2018-03-01 17:28 | CP.PCM.DIS ---
Provider - Provider Date of Admission: 02/25/18 18:18 Attending physician: Diana Barillas DO Consults: Podiatry: Luis Vascular: Kyleigh ID: Cal Time Spent in preparation of Discharge (in minutes): 35 Diagnosis - Discharge Diagnosis (1) Cellulitis of right leg Status: Resolved Hospital Course - Lab Results Lab Results: Micro Results 02/25/18 16:05 Blood Blood Culture - Preliminary NO GROWTH AFTER 4 DAYS 02/25/18 15:50 Blood Blood Culture - Preliminary NO GROWTH AFTER 4 DAYS 02/25/18 17:25 Leg - Right Gram Stain - Final 02/25/18 17:25 Leg - Right Wound Culture - Final Klebsiella Pneumoniae Ssp Pneu Most Recent Lab Values WBC 7.2 K/uL (4.8-10.8) 03/01/18 08:01 RBC 4.41 Mil/uL (4.40-5.90) 03/01/18 08:01 Hgb 13.4 g/dL (12.0-18.0) 03/01/18 08:01 Hct 39.1 % (35.0-51.0) 03/01/18 08:01 MCV 88.5 fL (80.0-94.0) 03/01/18 08:01 MCH 30.4 pg (27.0-31.0) 03/01/18 08:01 MCHC 34.4 g/dL (33.0-37.0) 03/01/18 08:01 RDW 14.6 % (11.5-14.5) H 03/01/18 08:01 Plt Count 305 K/uL (130-400) 03/01/18 08:01 MPV 8.4 fL (7.2-11.7) 03/01/18 08:01 Neut % (Auto) 66.7 % (50.0-75.0) 03/01/18 08:01 Lymph % (Auto) 21.3 % (20.0-40.0) 03/01/18 08:01 [place] % (Auto) 9.2 % (0.0-10.0) 03/01/18 08:01 Eos % (Auto) 1.9 % (0.0-4.0) 03/01/18 08:01 Baso % (Auto) 0.9 % (0.0-2.0) 03/01/18 08:01 Neut # (Auto) 4.8 K/uL (1.8-7.0) 03/01/18 08:01 Lymph # (Auto) 1.5 K/uL (1.0-4.3) 03/01/18 08:01 [place] # (Auto) 0.7 K/uL (0.0-0.8) 03/01/18 08:01 Eos # (Auto) 0.1 K/uL (0.0-0.7) 03/01/18 08:01 Baso # (Auto) 0.1 K/uL (0.0-0.2) 03/01/18 08:01 ESR 37 mm/hr (0-15) H 02/25/18 16:09 PT 12.7 SECONDS (9.7-12.2) H 02/25/18 16:09 INR 1.2 02/25/18 16:09 APTT 38 SECONDS (21-34) H 02/25/18 16:09 pO2 28 mm/Hg (30-55) L 02/25/18 16:10 VBG pH 7.38 (7.32-7.43) 02/25/18 16:10 VBG pCO2 46 mmHg (40-60) 02/25/18 16:10 VBG HCO3 24.8 mmol/L 02/25/18 16:10 VBG Total CO2 28.6 mmol/L (22-28) H 02/25/18 16:10 VBG O2 Sat (Calc) 63.6 % (40-65) 02/25/18 16:10 VBG Base Excess 1.5 mmol/L (0.0-2.0) 02/25/18 16:10 VBG Potassium 3.5 mmol/L (3.6-5.2) L 02/25/18 16:10 Sodium 141.0 mmol/l (132-148) 02/25/18 16:10 Chloride 108.0 mmol/L (98-107) H 02/25/18 16:10 Glucose 95 mg/dl (75-110) 02/25/18 16:10 Lactate 1.1 mmol/L (0.7-2.1) 02/25/18 16:10 Sodium 139 mmol/L (132-148) 03/01/18 08:01 Potassium 4.2 mmol/L (3.6-5.2) 03/01/18 08:01 Chloride 105 mmol/L (98-107) 03/01/18 08:01 Carbon Dioxide 24 mmol/L (22-30) 03/01/18 08:01 Anion Gap 14 (10-20) 03/01/18 08:01 BUN 17 mg/dL (9-20) 03/01/18 08:01 Creatinine 1.0 mg/dL (0.8-1.5) 03/01/18 08:01 Est GFR ( Amer) > 60 03/01/18 08:01 Est GFR (Non-Af Amer) > 60 03/01/18 08:01 Random Glucose 88 mg/dL (75-110) 03/01/18 08:01 Calcium 9.1 mg/dl (8.6-10.4) 03/01/18 08:01 Phosphorus 3.6 mg/dL (2.5-4.5) 03/01/18 08:01 Magnesium 1.8 mg/dL (1.6-2.3) 03/01/18 08:01 Total Bilirubin 0.4 mg/dL (0.2-1.3) 03/01/18 08:01 AST 24 U/L (17-59) 03/01/18 08:01 ALT 18 U/L (21-72) L 03/01/18 08:01 Alkaline Phosphatase 74 U/L (38-126) 03/01/18 08:01 Total Protein 6.7 g/dL (6.3-8.3) 03/01/18 08:01 Albumin 3.8 g/dL (3.5-5.0) 03/01/18 08:01 Globulin 2.9 gm/dL (2.2-3.9) 03/01/18 08:01 Albumin/Globulin Ratio 1.3 (1.0-2.1) 03/01/18 08:01 Venous Blood Potassium 3.5 mmol/L (3.6-5.2) L 02/25/18 16:10 Vancomycin Trough 31.1 ug/mL (5.0-10.0) H 02/26/18 07:34 Random Vancomycin < 5.0 ug/mL 02/27/18 06:15 - Hospital Course Hospital Course: "HPI: Patient is a 53 year male with history of anal fistula who presents to the ED with complaint of right leg wound that started from a small abrasion for a packaging box 20 days ago. Patient was seen in the ED on 02/13/18 for abdominal pain, however, his right leg wound was addressed as well. Venous doppler was negative for DVT on 02/13 and patient was discharge home with script for clindamycin 300mg PO TID for 7 days, which he filled and completed the 7 days course. Patient came back to the ED today because he noticed increased wound size, weeping and odour. Patient admits to 03/06 non-radiating pulsatile and burning pain that his mildly exacerbated with walking. Patient denies any symptoms fever, chills, nausea, vomiting, chest pain, palpitations, SOB, recent travels and sick contact but admits to right leg swelling." Patient admitted for R LE cellulitis refractory to PO Clindamycin. Vascular surgery, Dr. Arizmendi consulted. Podiatry, Dr. Smith consulted. ID, Dr. Mccall consulted. Wound culture on 02/25/18 showed Klebsiella Pneumoniae sensitive to Cipro and Meropenem. Given one dose of Meropenem 1 gram IV X1 ID started Ciprofloxacin 400mg IVQ12H on 02/27/18. Blood cultures showed no growth. No surgical intervention was necessary. Surgical consult did serial exams to rule out compartment syndrome. Podiatry did dressing changes to keep wound clean. Patient to go home on Cipro 500mg po BID and Naproxen for pain. Patient to put antibiotic cream on wound and cover in gauze. Patient to see Dr. Smith within one to 2 weeks. imaging: * 02/13 ( Venous Doppler): No evidence of deep or superficial vein thrombosis of the right lower extremity with venous flow. Normal valve function noted of right side * 02/25/18 (Right tibia and fibula): No radiographic evidence for acute osteomyelitis. No soft tissue gas. Subcutaneous edema. * 02/26/18: (arterial doppler): NOE non diagnostic due to possibler arterial wall calcifications This is a summary of the patient's hospital course, please see chart for full details. Discharge Exam - Additional Findings Additional findings: - Constitutional Appears: Well, Non-toxic, No Acute Distress - Head Exam Head Exam: ATRAUMATIC, NORMAL INSPECTION, NORMOCEPHALIC - Eye Exam Eye Exam: EOMI, Normal appearance - ENT Exam ENT Exam: Mucous Membranes Moist, Normal Exam - Neck Exam Neck Exam: Normal Inspection - Respiratory Exam Respiratory Exam: Clear to Ausculation Bilateral, NORMAL BREATHING PATTERN. absent: Rhonchi, Wheezes - Cardiovascular Exam Cardiovascular Exam: REGULAR RHYTHM, +S1, +S2. absent: Tachycardia - GI/Abdominal Exam GI & Abdominal Exam: Soft, Normal Bowel Sounds - Extremities Exam Extremities Exam: Normal Capillary Refill. absent: Calf Tenderness, Normal Inspection (right LE mid morales down to ankle, lesion flakey and crusty) - Neurological Exam Neurological Exam: Alert, Awake, Oriented x3 Discharge Plan - Discharge Medications Prescriptions: Ciprofloxacin 500 mg PO BID 10 Days ml Naproxen 500 mg PO BID 4 Days tab Neomycin/Bacitracin/Polymyxinb [Antibiotic Ointment] 28 gm TP DAILY #90 g - Follow Up Plan Condition: GOOD Disposition: HOME/ ROUTINE Instructions: Ciprofloxacin (Systemic), Cellulitis (Skin Infection), Adult (DC) , Naproxen, Bacitracin, Neomycin, and Polymyxin B (Topical), Cellulitis (DC), Cellulitis (GEN) Additional Instructions: Please take your medications as prescribed. You have been prescribed ciprofloxacin 500 mg twice a day and naproxen 500 mg twice a day. Please take Activia yogurt with your antibiotic. You have also been given a podiatry referral for Dr. Karoline Smith. Please follow up with them within 1-2 weeks for care of your ulcer. Please put antibiotic cream on wound and then wrap with gauze daily. Please also follow up with your primary medical doctor within 1-2 weeks. Please return to ED if symptoms worsen. Referrals: Diana Barillas DO [Staff Provider] - Karoline Smith DPM [Staff Provider] - Caroline Yoder MD [Staff Provider] -
[2018-03-02 06:16] VITALS: O2SAT 98
--- NOTE | 2018-03-02 07:07 | CON ---
Copied To: Srikanth Mccall MD Attending MD: Srikanth Mccall MD DATE: 02/27/2018 HISTORY OF PRESENT ILLNESS: This patient is a 53-year-old male. He came in with right leg swelling and abrasion and cellulitis. He was packing boxes 20 days ago, and he probably got a trauma. He came to the emergency room with abdominal pain. However, his right leg was dressed, and they did a Doppler on 02/13/2018 and discharged him on clindamycin 300 mg t.i.d. He has completed the course for seven days, still had cellulitis and redness and increasing wound with scab now. He came here on 02/25/2018. He has been on antibiotics, and I am asked to evaluated him. He denies any fever, chills. No nausea, no vomiting, no diarrhea. He still has right leg swelling. There is a marking there and there is a dressing. SURGICAL HISTORY: He has surgical history of anal fistula, fistulectomy with plug placement on , perianal fistulogram and anal fistulectomy with some surgery in 07/2017. He has history of anal fistula. FAMILY HISTORY: Noncontributory. He denies any history of diabetes. ALLERGIES: HE IS NOT ALLERGIC TO ANY MEDICINES. SOCIAL HISTORY: He lives with a friend. He is a construction helper. Denies any former use of tobacco or any illicit drugs, and he does drink alcohol he said once a month. I did not ask him his sexual preference but may need to ask. He came in, he is on antibiotics. MEDICATIONS: Include, he was on meropenem and Zosyn which was discontinued. Today, ____ PHYSICAL EXAMINATION: VITAL SIGNS: I find his temperature is 98.4, pulse 70, blood pressure is 118/67, respirations are 20. HEENT: Head is atraumatic, normocephalic. NECK: Supple. LUNGS: Clear. No crackles or rales present. HEART: S1, S2 regular. ABDOMEN: Soft, nontender. No guarding. No rigidity present. EXTREMITIES: Right leg has no edema present. Cellulitis is decreasing. He has a laceration. Labs are noted. Labs show white count is 6.1, hemoglobin 12.8, hematocrit 38.2, platelet count is 275. Chemistry shows BUN is 14, creatinine is 1.1. The wound grew Klebsiella pneumoniae which is sensitive to Cipro. So I am going to put him on Cipro at this time and will follow. He is not allergic to any medicines, so I think Cipro would be the best choice for now and if he continues to improve, then I will review the wound when I get a chance to look at it but it has a scab and the cellulitis has been decreasing, so we will follow. Srikanth Mccall MD
== END 2018-03-01 15:43 | disposition home or self-care (01) | DRG 277 ==
LOC: C.ER 14:55 → C.3T 18:18
PROVIDERS: ADMIT Hospitalist; ATTEND Hospitalist
DX: L03.115 Cellulitis of right lower limb (principal); L97.811 Non-pressure chronic ulcer of other part of right lower leg limited to breakdown of skin; B96.1 Klebsiella pneumoniae [K. pneumoniae] as the cause of diseases classified elsewhere; I87.2 Venous insufficiency (chronic) (peripheral); Z16.29 Resistance to other single specified antibiotic

== ENCOUNTER 2018-03-18 22:55 | Emergency (ER) | payer OTHER ==
[2018-03-18 22:56] VITALS: BMI 28.1
[2018-03-18 23:07] VITALS: RESP 14
[2018-03-18] MEDS ORDERED: Piperacillin/Tazobact 3.375 GM in Sodium Chloride 100 ML IVPB STA (23:26)
--- NOTE | 2018-03-18 23:38 | C.PDOC ---
History Of Present Illness 53yo male, comes to ER for evaluation of an ulcer to his right lower tib/fib region x 20 days. Patient denies any visits to a doctor prior and denies taking any medications for his symptoms. He denies any fever, chills and offers no other complaints. Time Seen by Provider: 03/18/18 23:18 Chief Complaint (Nursing): Wound Check History Per: Patient History/Exam Limitations: no limitations Onset/Duration Of Symptoms: Days Ago (20) Current Symptoms Are (Timing): Still Present Additional History Per: Patient Past Medical History Reviewed: Historical Data, Nursing Documentation, Vital Signs Vital Signs: Last Vital Signs Temp 98.9 F 03/18/18 23:04 Pulse 90 03/18/18 23:04 Resp 14 03/18/18 23:04 BP 123/82 03/18/18 23:04 Pulse Ox 98 03/18/18 23:48 - Medical History PMH: Denies: Chronic Kidney Disease Surgical History: No Surg Hx Family History: States: No Known Family Hx - Social History Hx Tobacco Use: No Hx Alcohol Use: No Hx Substance Use: No - Immunization History Hx Tetanus Toxoid Vaccination: No Hx Influenza Vaccination: No Hx Pneumococcal Vaccination: No Review Of Systems Except As Marked, All Systems Reviewed And Found Negative. Constitutional: Negative for: Fever, Chills Skin: Positive for: Other (ulcer to right lower tib/fib region) Physical Exam - Physical Exam Appears: Non-toxic, No Acute Distress Skin: Normal Color Head: Normacephalic Eye(s): bilateral: Normal Inspection Neck: Supple Chest: Symmetrical Cardiovascular: Rhythm Regular Respiratory: Normal Breath Sounds Extremity: Normal ROM (FROM of bilateral lower extremities), No Calf Tenderness , Capillary Refill (< 2 seconds), No Deformity, Other (ulcer to right anterior tib/fib with erythema and swelling) Pulses: Left Dorsalis Pedis: Normal (normal PT pulse), Right Dorsalis Pedis: Normal (normal PT pulse) Neurological/Psych: Oriented x3 ED Course And Treatment - Laboratory Results Result Diagrams: 03/19/18 00:05 03/19/18 00:05 O2 Sat by Pulse Oximetry: 98 (RA) Pulse Ox Interpretation: Normal Medical Decision Making Medical Decision Making: Assessment: Cellulitis Plan: * Labs * XR Right Tib/Fib * IV Vancomycin * IV Zosyn 2348 Tib/fib 2 view with no gross deformities, no frx, no gas mary kate attempt outpatient management and follow up with pmd/podiatry Disposition - Disposition Referrals: [facility] [Outside] Podiatry Clinic [Outside] Disposition: HOME/ ROUTINE Disposition Time: 00:36 Condition: STABLE Additional Instructions: follow up with medical clinic and podiatry within 2 days call to make an appointment take medications as prescribed return to ER if symptoms worsens or progress Prescriptions: Cephalexin [Keflex] 500 mg PO QID #40 capsule Sulfamethoxazole/Trimethoprim [Bactrim DS 800 mg-160 mg] 1 tab PO BID #20 tab Instructions: Cellulitis (Skin Infection), Adult (DC) Forms: [facility] ([place]), General Discharge Instructions - Clinical Impression Clinical Impression: Infection of skin - Scribe Statement The provider has reviewed the documentation as recorded by the Agueda Luevano Provider Attestation: All medical record entries made by the Agueda were at my direction and personally dictated by me. I have reviewed the chart and agree that the record accurately reflects my personal performance of the history, physical exam, medical decision making, and the department course for this patient. I have also personally directed, reviewed, and agree with the discharge instructions and disposition.
[2018-03-19 00:09] LABS: BASO % 0.4 % (0.0-2.0); EOS # 0.1 K/uL (0.0-0.7); EOS % 1.6 % (0.0-4.0); HEMOGLOBIN 13.9 g/dL (12.0-18.0); LYMPH # 1.7 K/uL (1.0-4.3); LYMPH % 20.7 % (20.0-40.0); MEAN CELL VOLUME 85.4 fL (80.0-94.0); MEAN CORPUSCULAR HEMOGLOBIN 30.1 pg (27.0-31.0); MEAN CORPUSCULAR HGB CONC 35.3 g/dL (33.0-37.0); MEAN PLATELET VOLUME 7.4 fL (7.2-11.7); MONO # 0.4 K/uL (0.0-0.8); MONO % 5.3 % (0.0-10.0); NEUT # 5.9 K/uL (1.8-7.0); RBC 4.61 Mil/uL (4.40-5.90); WHITE BLOOD COUNT 8.2 K/uL (4.8-10.8)
[2018-03-19 00:30] LABS: ALB/GLOB RATIO 1.3 (1.0-2.1); ALBUMIN 4.4 g/dL (3.5-5.0); ALT/SGPT 26 U/L (21-72); AST/SGOT 29 U/L (17-59); BLOOD UREA NITROGEN 10 mg/dL (9-20); CALCIUM 8.7 mg/dl (8.6-10.4); GFR NON-AFRICAN AMERICAN > 60
[2018-03-19 02:22] VITALS: BP 120/70; PULSE 80; TEMP 98
--- NOTE | 2018-03-19 09:02 | RAD ---
Date of service: 03/18/2018 PROCEDURE: Radiographs of the right tibia and fibula. HISTORY: right leg infection COMPARISON: None available TECHNIQUE: Frontal and lateral views obtained. FINDINGS: BONES: No fracture or destructive lesion. JOINT SPACES: Unremarkable. OTHER FINDINGS: Diffuse subcutaneous reticulated edema. Anterior soft tissue phleboliths. Concomitant posterior soft tissue phleboliths. No gas-forming cellulitis seen. IMPRESSION: No periosteal reaction or cortical destruction seen to suggest osteomyelitis. Soft tissue changes compatible with lymphedema and/or cellulitis. No gas-forming cellulitis. Phleboliths noted.
[2018-03-19 14:41] VITALS: O2SAT 98
== END 2018-03-19 02:22 | disposition home or self-care (01) ==
LOC: C.ER 22:55
DX: L08.9 Local infection of the skin and subcutaneous tissue, unspecified (principal)
CPT/HCPCS: 73590; 80053; 85025; 96365; 96375; 99282; J2543; J7050

== ENCOUNTER 2018-09-23 08:23 | Day surgery (SDC) | payer OTHER ==
[2018-05-21 11:12] VITALS: BMI 28.1
[2018-09-23] MEDS ORDERED: Lactated Ringer's 500 ML IV SCH (11:00)
[2018-09-23] MEDS ORDERED: Propofol 10 mg/ml Inj (20 ML) ONE (11:04)
[2018-09-23] MEDS ORDERED: Lactated Ringer's 500 ML IV ONE ×2 (11:04)
[2018-09-23] MEDS ORDERED: Lidocaine Hydrochloride 5 ML INJ ONE (11:05)
[2018-09-23 11:06] VITALS: TEMP 98.4
[2018-09-23 11:09] VITALS: PULSE 63; RESP 26; O2SAT 100
--- NOTE | 2018-09-23 11:09 | CP.SDSHP ---
Same Day Surgery H & P - History Proposed Procedure: colonscopy Pre-Op Diagnosis: rectal bleeding. h/o anal fissures - Previous Medical/Surgical History Previous Surgical History: Anal fissure surgery- 2015, 2017 - Allergies Allergies: Allergies No Known Allergies Allergy (Verified 09/23/18 09:02) - Physical Exam Vital Signs: Vital Signs 09/23/18 08:30 Temperature 98.4 F Pulse Rate 78 Respiratory 18 Rate Blood Pressure 145/89 O2 Sat by Pulse 98 Oximetry Mental Status: Alert & Oriented x3 Neuro: WNL Heart: WNL Lungs: WNL GI: WNL - Impression Impression: rectal bleeding. h/o anal fissures Pt. Evaluated Today:Candidate for Anesthesia & Procedure: Yes - Date & Time Date: 09/23/18 Time: 11:09 Short Stay Discharge - Short Stay Discharge Admitting Diagnosis/Reason for Visit: MELENA / HEARTBURN / ANAL FISSURE Disposition: HOME/ ROUTINE Referrals: Caroline Yoder MD [Primary Care Provider] -
[2018-09-23 12:21] VITALS: BP 123/69
== END 2018-09-23 13:00 | disposition home or self-care (01) ==
LOC: C.ENDO 08:23
PROVIDERS: ATTEND Internal Medicine Gastroenterology
DX: K62.1 Rectal polyp (principal); K63.5 Polyp of colon; R12 Heartburn; K64.1 Second degree hemorrhoids
CPT/HCPCS: 45385; 88305; J2704; J7120

== ENCOUNTER 2018-10-27 07:17 | Day surgery (SDC) | payer OTHER ==
--- NOTE | 2018-10-27 09:43 | CP.SDSHP ---
<Nestor Rice - Last Filed: 10/27/18 09:43> Same Day Surgery H & P - History Proposed Procedure: egd Pre-Op Diagnosis: hematemesis. heartburn. nausea - Previous Medical/Surgical History Comments: rectal fissure. internal hemrroids. tubular adenoma - Allergies Allergies: Allergies No Known Allergies Allergy (Verified 09/23/18 09:02) - Current Medications Current Medications: none - Physical Exam General Appearance: no acute distress Vital Signs: Vital Signs 10/27/18 08:15 Temperature 98.6 F Pulse Rate 77 Respiratory 19 Rate Blood Pressure 142/81 O2 Sat by Pulse 98 Oximetry Mental Status: Alert & Oriented x3 Neuro: WNL Heart: WNL Lungs: WNL GI: WNL - Impression Impression: hematemsis. nausea. heartburn Pt. Evaluated Today:Candidate for Anesthesia & Procedure: Yes - Date & Time Date: 10/27/18 Time: 09:00 Short Stay Discharge - Short Stay Discharge Admitting Diagnosis/Reason for Visit: HEMATEMESIS / HEARTBURN / NAUSEA & VO MITING Disposition: HOME/ ROUTINE Referrals: Caroline Yoder MD [Primary Care Provider] - <Thierno Noyola - Last Filed: 10/27/18 09:44> Same Day Surgery H & P - Allergies Allergies: Allergies No Known Allergies Allergy (Verified 09/23/18 09:02) - Physical Exam Vital Signs: Vital Signs 10/27/18 08:15 Temperature 98.6 F Pulse Rate 77 Respiratory 19 Rate Blood Pressure 142/81 O2 Sat by Pulse 98 Oximetry Attending/Attestation - Attestation I have personally seen and examined this patient.: Yes I have fully participated in the care of the patient.: Yes I have reviewed all pertinent clinical information: Yes Notes (Text): 10/27/18 09:44 agree with plans for EGD to evaluate heartburn and recent bloody emesis.
[2018-10-27 09:44] VITALS: BMI 29.0
[2018-10-27] MEDS ORDERED: Propofol 10 mg/ml Inj (20 ML) ONE ×2 (09:46→10:01)
[2018-10-27] MEDS ORDERED: Pantoprazole 40 mg EC Tab PO STA (09:52)
[2018-10-27 14:03] VITALS: TEMP 98.7
[2018-10-27 14:04] VITALS: O2SAT 100
[2018-10-27 14:05] VITALS: BP 113/60; PULSE 79; RESP 14
== END 2018-10-27 12:05 | disposition home or self-care (01) ==
LOC: C.ENDO 07:17
PROVIDERS: ATTEND Internal Medicine Gastroenterology
DX: K92.0 Hematemesis (principal); R12 Heartburn; R11.2 Nausea with vomiting, unspecified; K20.9 Esophagitis, unspecified
CPT/HCPCS: 43239; 88305; J2001; J2704